=== PATIENT | male | born 1985 | race African-American/Black ===

== ENCOUNTER 2018-11-28 11:18 | Emergency (ER) | payer SELFPAY ==
[~2018-11-28] VITALS: Ht 157.5 cm; Wt 68.0 kg
[2018-11-28] MEDS ORDERED: PHEN30CA PO (11:29)
--- NOTE | 2018-11-28 12:01 | PHYS DOC ---
Past Medical History Past Medical History: Seizure Past Surgical History: No Surgical History Alcohol Use: Occasionally Drug Use: None Adult General Chief Complaint Chief Complaint: SEIZURE HPI HPI Patient is a 32-year-old male who presents after having had a seizure. Patient does indicate that he has a history of seizure disorder and takes Dilantin for seizures. He does indicate that his last dose was today. He states he just took 200 mg. He does admit to having missed recent doses of the medication because he moved here 3 months ago and still has not established care with a doctor. He does admit to mild headache but denies any injuries. Patient reportedly was postictal during EMS evaluation. Currently patient has returned to baseline. Review of Systems Review of Systems Constitutional: Denies fever or chills [] Respiratory: Denies cough or shortness of breath [] Cardiovascular: No additional information not addressed in HPI [] GI: Denies abdominal pain, nausea, vomiting or diarrhea [] Musculoskeletal: Denies back pain or joint pain [] Neurologic: Complains of headache and seizure without focal weakness or sensory changes [] All other systems were reviewed and found to be within normal limits, except as documented in this note. Current Medications Current Medications Current Medications Medications (Trade) Dose Ordered Sig/Ursula Start Time Stop Time Status Last Admin Dose Admin Fosphenytoin Sodium 1000 mg/ Sodium Chloride 70 ml @ 280 mls/hr 1X ONCE 11/28/18 14:15 11/28/18 14:29 DC 11/28/18 15:10 280 MLS/HR Lorazepam (Ativan) 1 mg 1X ONCE 11/28/18 12:00 11/28/18 12:02 DC 11/28/18 12:21 1 MG Allergies Allergies Allergies Coded Allergies Type Severity Reaction Last Updated Verified No Known Drug Allergies 11/28/18 No Physical Exam Physical Exam Constitutional: Well developed, well nourished, no acute distress, non-toxic appearance. [] HENT: Normocephalic, atraumatic, bilateral external ears normal, oropharynx moist, no oral exudates, nose normal. [] Eyes: PERRLA, EOMI, conjunctiva normal, no discharge. [] Neck: Normal range of motion, no tenderness, supple, no stridor. [] Cardiovascular: Regular rate and rhythm, no murmur [] Lungs & Thorax: Bilateral breath sounds clear to auscultation [] Abdomen: Bowel sounds normal, soft, no tenderness. [] Skin: Warm, dry, no erythema, no rash. [] Extremities: No tenderness, no cyanosis, no clubbing, ROM intact, no edema. [] Neurologic: Alert and oriented X 3, normal motor function, normal sensory function, no focal deficits noted. [] Current Patient Data Vital Signs Vital Signs Date Time Temp Pulse Resp B/P (MAP) Pulse Ox O2 Delivery O2 Flow Rate FiO2 11/28/18 13:34 62 16 97 11/28/18 11:18 98.4 137/66 (89) Room Air 98.4 Lab Values Laboratory Tests Test 11/28/18 11:39 11/28/18 14:00 White Blood Count 5.2 x10^3/uL (4.0-11.0) Red Blood Count 4.52 x10^6/uL (4.30-5.70) Hemoglobin 14.3 g/dL (13.0-17.5) Hematocrit 41.6 % (39.0-53.0) Mean Corpuscular Volume 92 fL (79-100) Mean Corpuscular Hemoglobin 32 pg (25-35) Mean Corpuscular Hemoglobin Concent 34 g/dL (31-37) Red Cell Distribution Width 14.1 % (11.5-14.5) Platelet Count 196 x10^3/uL (140-400) Neutrophils (%) (Auto) 48 % (31-73) Lymphocytes (%) (Auto) 40 % (24-48) Monocytes (%) (Auto) 10 % (0-9) H Eosinophils (%) (Auto) 2 % (0-3) Basophils (%) (Auto) 0 % (0-3) Neutrophils # (Auto) 2.5 x10^3uL (1.8-7.7) Lymphocytes # (Auto) 2.1 x10^3/uL (1.0-4.8) Monocytes # (Auto) 0.5 x10^3/uL (0.0-1.1) Eosinophils # (Auto) 0.1 x10^3/uL (0.0-0.7) Basophils # (Auto) 0.0 x10^3/uL (0.0-0.2) Sodium Level 140 mmol/L (136-145) Potassium Level 3.8 mmol/L (3.5-5.1) Chloride Level 101 mmol/L (98-107) Carbon Dioxide Level 25 mmol/L (21-32) Anion Gap 14 (6-14) Blood Urea Nitrogen 9 mg/dL (8-26) Creatinine 1.4 mg/dL (0.7-1.3) H Estimated GFR (Cockcroft-Gault) 70.6 BUN/Creatinine Ratio 6 (6-20) Glucose Level 160 mg/dL (70-99) H Calcium Level 9.1 mg/dL (8.5-10.1) Total Bilirubin 0.4 mg/dL (0.2-1.0) Aspartate Amino Transferase (AST) 33 U/L (15-37) Alanine Aminotransferase (ALT) 47 U/L (16-63) Alkaline Phosphatase 82 U/L (46-116) Total Protein 7.8 g/dL (6.4-8.2) Albumin 3.5 g/dL (3.4-5.0) Albumin/Globulin Ratio 0.8 (1.0-1.7) L Phenytoin (Dilantin) Level < 0.5 mcg/mL (10.0-20.0) L Phenytoin Last Dose Date Unknown Phenytoin Last Dose Time Unknown Urine Collection Type Unknown Urine Color Yellow Urine Clarity Clear Urine pH 6.5 Urine Specific [place] 1.015 Urine Protein Negative mg/dL (NEG-TRACE) Urine Glucose (UA) Negative mg/dL (NEG) Urine Ketones (Stick) Negative mg/dL (NEG) Urine Blood Negative (NEG) Urine Nitrite Negative (NEG) Urine Bilirubin Negative (NEG) Urine Urobilinogen Dipstick 0.2 mg/dL (0.2 mg/dL) Urine Leukocyte Esterase Negative (NEG) Urine RBC 0 /HPF (0-2) Urine WBC 0 /HPF (0-4) Urine Bacteria 0 /HPF (0-FEW) Urine Opiates Screen Neg (NEG) Urine Methadone Screen Neg (NEG) Urine Barbiturates Neg (NEG) Urine Phencyclidine Screen Neg (NEG) Urine Amphetamine/Methamphetamine Neg (NEG) Urine Benzodiazepines Screen Neg (NEG) Urine Cocaine Screen Neg (NEG) Urine Cannabinoids Screen Neg (NEG) Urine Ethyl Alcohol Neg (NEG) Laboratory Tests 11/28/18 11:39 Laboratory Tests 11/28/18 11:39 EKG EKG [] Radiology/Procedures Radiology/Procedures [] Course & Med Decision Making Course & Med Decision Making Pertinent Labs and Imaging studies reviewed. (See chart for details) [] Dragon Disclaimer Dragon Disclaimer This electronic medical record was generated, in whole or in part, using a voice recognition dictation system. Departure Departure Impression: Primary Impression: Seizure Disposition: HOME, SELF-CARE Condition: STABLE Referrals: NO PCP (PCP) Patient Instructions: Seizure Disorder, Child, Generalized Tonic-Clonic Scripts Phenytoin Sodium Extended (DILANTIN) 100 Mg Capsule 1 CAP PO TID, #90 CAP Prov: ABY ARNOLD Jr. DO 11/28/18 ABY ARNOLD Jr. DO Nov 28, 2018 12:01
[2018-11-28 12:15] LABS: ANION GAP 14 (6-14); BLOOD UREA NITROGEN 9 mg/dL (8-26); BUN/CREATININE RATIO 6 (6-20); CALCIUM 9.1 mg/dL (8.5-10.1); CARBON DIOXIDE 25 mmol/L (21-32); CHLORIDE 101 mmol/L (98-107); CREATININE 1.4 mg/dL (0.7-1.3); GFR 70.6; GLUCOSE 160 mg/dL (70-99); POTASSIUM 3.8 mmol/L (3.5-5.1); SODIUM 140 mmol/L (136-145)
[2018-11-28 12:21] LABS: ALBUMIN 3.5 g/dL (3.4-5.0); ALBUMIN/GLOBULIN RATIO 0.8 (1.0-1.7); ALK PHOS 82 U/L (46-116); ALT (SGPT) 47 U/L (16-63); AST (SGOT) 33 U/L (15-37); TOTAL BILIRUBIN 0.4 mg/dL (0.2-1.0); TOTAL PROTEIN 7.8 g/dL (6.4-8.2)
[2018-11-28 12:24] LABS: BASO % 0 % (0-3); EOS # 0.1 x10^3/uL (0.0-0.7); EOS % 2 % (0-3); HEMATOCRIT 41.6 % (39.0-53.0); HEMOGLOBIN 14.3 g/dL (13.0-17.5); LYMPH # 2.1 x10^3/uL (1.0-4.8); LYMPH % 40 % (24-48); MEAN CORPUSCULAR HEMOGLOBIN 32 pg (25-35); MEAN CORPUSCULAR HGB CONC 34 g/dL (31-37); MEAN CORPUSCULAR VOLUME 92 fL (79-100); MONO # 0.5 x10^3/uL (0.0-1.1); MONO % 10 % (0-9); NEUT # 2.5 x10^3uL (1.8-7.7); NEUT % 48 % (31-73); PLATELET COUNT 196 x10^3/uL (140-400); RED BLOOD COUNT 4.52 x10^6/uL (4.30-5.70); RED CELL DISTRIBUTION WIDTH 14.1 % (11.5-14.5); WHITE BLOOD COUNT 5.2 x10^3/uL (4.0-11.0)
[2018-11-28 12:28] LABS: PHENY < 0.5 mcg/mL (10.0-20.0)
[2018-11-28] MEDS ORDERED: FOSPHENYTOIN 1,000 MG in IV NORMAL SALINE 50ML 50 ML IV ONE (14:15)
[2018-11-28 14:29] LABS: BARBITURATES NEG (NEG); BENZODIAZEPINES NEG (NEG); BILIRUBIN,URINE NEGATIVE (NEG); CANNABINOIDS NEG (NEG); CLARITY,URINE CLEAR; COCAINE NEG (NEG); COLOR,URINE YELLOW; METHADONE NEG (NEG); NITRITE,URINE NEGATIVE (NEG); OPIATES NEG (NEG); PH,URINE 6.5; PHENCYCLIDINE NEG (NEG); PROTEIN,URINE NEGATIVE (NEG-TRACE); UROBILINOGEN,URINE 0.2 mg/dL (0.2 mg/dL)
[2018-11-28 14:41] LABS: AMPHETAMINE/METHAMPHETAMINE NEG (NEG)
[2018-11-28 15:02] LABS: BACTERIA,URINE 0 /HPF (0-FEW); RBC,URINE 0 /HPF (0-2); WBC,URINE 0 /HPF (0-4)
[2018-11-28 16:04] VITALS: BP 123/64
[2018-11-28] MEDS ORDERED: PHEN100C PO (16:19)
[2018-11-28] MEDS ORDERED: AZITHROMYCIN 250 MG TABLET. PO ONE (16:45)
[2018-11-28] MEDS ORDERED: cefTRIAXone IM 250 MG VIAL IM ONE (16:45)
== END 2018-11-28 17:12 | disposition home or self-care (01) ==
LOC: ER 11:18
DX: G40.909 Epilepsy, unspecified, not intractable, without status epilepticus (principal)
CPT/HCPCS: 36415; 80053; 80185; 80307; 81001; 85025; 87491; 87591; 96365; 96372; 96375; 99283; J0696; J2060; Q0144; Q2009

== ENCOUNTER 2019-03-05 15:05 | Emergency (ER) | payer SELFPAY ==
[~2019-03-05] VITALS: Ht 165.1 cm; Wt 72.6 kg
[~2019-03-05 15:05] MED LIST: PHEN100C PO; PHEN30CA PO
[2019-03-05] MEDS ORDERED: IV NORMAL SALINE 1000ML BAG 1,000 ML IV ONE (15:30)
[2019-03-05] MEDS ORDERED: ONDANSETRON PF 4 MG/2 ML VIAL. IV ONE (15:30)
[2019-03-05 15:35] LABS: BASO % 0 % (0-3); EOS # 0.1 x10^3/uL (0.0-0.7); EOS % 1 % (0-3); HEMATOCRIT 46.5 % (39.0-53.0); HEMOGLOBIN 15.4 g/dL (13.0-17.5); LYMPH # 2.6 x10^3/uL (1.0-4.8); LYMPH % 37 % (24-48); MEAN CORPUSCULAR HEMOGLOBIN 31 pg (25-35); MEAN CORPUSCULAR HGB CONC 33 g/dL (31-37); MEAN CORPUSCULAR VOLUME 92 fL (79-100); MONO # 0.6 x10^3/uL (0.0-1.1); MONO % 9 % (0-9); NEUT # 3.7 x10^3uL (1.8-7.7); NEUT % 53 % (31-73); PLATELET COUNT 226 x10^3/uL (140-400); RED BLOOD COUNT 5.07 x10^6/uL (4.30-5.70); RED CELL DISTRIBUTION WIDTH 13.9 % (11.5-14.5); WHITE BLOOD COUNT 6.9 x10^3/uL (4.0-11.0)
--- NOTE | 2019-03-05 15:35 | PHYS DOC ---
Past Medical History Past Medical History: Seizure (MONISHA TABARES) Past Surgical History: No Surgical History (MONISHA TABARES) Alcohol Use: Occasionally Drug Use: None (MONISHA TABARES) Adult General Chief Complaint Chief Complaint: SEIZURE HPI HPI Patient is a 33 year old male with a history of seizures presents to the ED complaining of seizure just prior to arrival. Patient states that he had been drinking alcohol a few days ago. States he has missed doses of his Dilantin. States he has not taken it today. He usually takes 300 mg. Patient felt like he saw [employer] lights, sat down on side of bed and told family to call an ambulance because he could feel the seizure coming on. States same symptoms as previous seizures. Bystanders report it lasting less than 1 minute. Patient has not established with a PCP. Patient was postictal when EMS was on scene. Patient has currently return to his baseline and complains of no symptoms at this time. (MONISHA TABARES) Review of Systems Review of Systems Constitutional: Denies fever or chills [] Eyes: Denies change in visual acuity, redness, or eye pain [] HENT: Denies nasal congestion or sore throat [] Respiratory: Denies cough or shortness of breath [] Cardiovascular: No additional information not addressed in HPI [] GI: Denies abdominal pain, nausea, vomiting, bloody stools or diarrhea [] : Denies dysuria or hematuria [] Musculoskeletal: Denies back pain or joint pain [] Integument: Denies rash or skin lesions [] Neurologic: Complains of seizure. Denies headache, focal weakness or sensory changes [] All other systems were reviewed and found to be within normal limits, except as documented in this note. (MONISHA TABARES) Current Medications Current Medications Current Medications Medications (Trade) Dose Ordered Sig/Ursula Start Time Stop Time Status Last Admin Dose Admin Fosphenytoin Sodium 450 mg/ Sodium Chloride 59 ml @ 240 mls/hr 1X ONCE 03/05/19 18:15 03/05/19 18:29 DC 03/05/19 18:34 240 MLS/HR Lorazepam (Ativan) 1 mg 1X ONCE 03/05/19 15:30 03/05/19 15:31 DC 03/05/19 15:30 1 MG Ondansetron HCl (Zofran) 4 mg 1X ONCE 03/05/19 15:30 03/05/19 15:31 DC 03/05/19 15:30 4 MG Sodium Chloride 1,000 ml @ 1,000 mls/hr 1X ONCE 03/05/19 15:30 03/05/19 16:29 DC 03/05/19 15:30 1,000 MLS/HR (MANOLO VASQUEZ MD) Allergies Allergies Allergies Coded Allergies Type Severity Reaction Last Updated Verified No Known Drug Allergies 11/28/18 No (MANOLO VASQUEZ MD) Physical Exam Physical Exam Constitutional: Well developed, well nourished, no acute distress, non-toxic appearance. [] HENT: Normocephalic, atraumatic, bilateral external ears normal, oropharynx moist, no oral exudates, nose normal. [] Eyes: PERRLA, EOMI, conjunctiva normal, no discharge. [] Neck: Normal range of motion, no tenderness, supple, no stridor. [] Cardiovascular:Heart rate regular rhythm, no murmur [] Lungs & Thorax: Bilateral breath sounds clear to auscultation [] Abdomen: Bowel sounds normal, soft, no tenderness, no masses, no pulsatile masses. [] Skin: Warm, dry, no erythema, no rash. [] Back: No tenderness, no CVA tenderness. [] Extremities: No tenderness, no cyanosis, no clubbing, ROM intact, no edema. [] Neurologic: Alert and oriented X 3, normal motor function, normal sensory function, no focal deficits noted. DTRs intact.[] Psychologic: Affect normal, judgement normal, mood normal. [] (MONISHA TABARES) Current Patient Data Vital Signs Vital Signs Date Time Temp Pulse Resp B/P (MAP) Pulse Ox O2 Delivery O2 Flow Rate FiO2 03/05/19 18:30 82 03/05/19 17:00 15 97 03/05/19 15:10 98.6 138/59 (85) Room Air 98.6 (MANOLO VASQUEZ MD) Lab Values Laboratory Tests Test 03/05/19 15:20 White Blood Count 6.9 x10^3/uL (4.0-11.0) Red Blood Count 5.07 x10^6/uL (4.30-5.70) Hemoglobin 15.4 g/dL (13.0-17.5) Hematocrit 46.5 % (39.0-53.0) Mean Corpuscular Volume 92 fL (79-100) Mean Corpuscular Hemoglobin 31 pg (25-35) Mean Corpuscular Hemoglobin Concent 33 g/dL (31-37) Red Cell Distribution Width 13.9 % (11.5-14.5) Platelet Count 226 x10^3/uL (140-400) Neutrophils (%) (Auto) 53 % (31-73) Lymphocytes (%) (Auto) 37 % (24-48) Monocytes (%) (Auto) 9 % (0-9) Eosinophils (%) (Auto) 1 % (0-3) Basophils (%) (Auto) 0 % (0-3) Neutrophils # (Auto) 3.7 x10^3uL (1.8-7.7) Lymphocytes # (Auto) 2.6 x10^3/uL (1.0-4.8) Monocytes # (Auto) 0.6 x10^3/uL (0.0-1.1) Eosinophils # (Auto) 0.1 x10^3/uL (0.0-0.7) Basophils # (Auto) 0.0 x10^3/uL (0.0-0.2) Sodium Level 136 mmol/L (136-145) Potassium Level 4.0 mmol/L (3.5-5.1) Chloride Level 98 mmol/L (98-107) Carbon Dioxide Level 21 mmol/L (21-32) Anion Gap 17 (6-14) H Blood Urea Nitrogen 17 mg/dL (8-26) Creatinine 1.2 mg/dL (0.7-1.3) Estimated GFR (Cockcroft-Gault) 83.9 Glucose Level 185 mg/dL (70-99) H Calcium Level 9.4 mg/dL (8.5-10.1) Albumin 4.2 g/dL (3.4-5.0) Phenytoin (Dilantin) Level 2.2 mcg/mL (10.0-20.0) L Phenytoin Last Dose Date Unk Phenytoin Last Dose Time Unk Laboratory Tests 03/05/19 15:20 Laboratory Tests 03/05/19 15:20 (MANOLO VASQUEZ MD) Lab Values Laboratory Tests Test 03/05/19 15:20 White Blood Count 6.9 x10^3/uL (4.0-11.0) Red Blood Count 5.07 x10^6/uL (4.30-5.70) Hemoglobin 15.4 g/dL (13.0-17.5) Hematocrit 46.5 % (39.0-53.0) Mean Corpuscular Volume 92 fL (79-100) Mean Corpuscular Hemoglobin 31 pg (25-35) Mean Corpuscular Hemoglobin Concent 33 g/dL (31-37) Red Cell Distribution Width 13.9 % (11.5-14.5) Platelet Count 226 x10^3/uL (140-400) Neutrophils (%) (Auto) 53 % (31-73) Lymphocytes (%) (Auto) 37 % (24-48) Monocytes (%) (Auto) 9 % (0-9) Eosinophils (%) (Auto) 1 % (0-3) Basophils (%) (Auto) 0 % (0-3) Neutrophils # (Auto) 3.7 x10^3uL (1.8-7.7) Lymphocytes # (Auto) 2.6 x10^3/uL (1.0-4.8) Monocytes # (Auto) 0.6 x10^3/uL (0.0-1.1) Eosinophils # (Auto) 0.1 x10^3/uL (0.0-0.7) Basophils # (Auto) 0.0 x10^3/uL (0.0-0.2) Sodium Level 136 mmol/L (136-145) Potassium Level 4.0 mmol/L (3.5-5.1) Chloride Level 98 mmol/L (98-107) Carbon Dioxide Level 21 mmol/L (21-32) Anion Gap 17 (6-14) H Blood Urea Nitrogen 17 mg/dL (8-26) Creatinine 1.2 mg/dL (0.7-1.3) Estimated GFR (Cockcroft-Gault) 83.9 Glucose Level 185 mg/dL (70-99) H Calcium Level 9.4 mg/dL (8.5-10.1) Albumin 4.2 g/dL (3.4-5.0) Phenytoin (Dilantin) Level 2.2 mcg/mL (10.0-20.0) L Phenytoin Last Dose Date Unk Phenytoin Last Dose Time Unk Laboratory Tests 03/05/19 15:20 Laboratory Tests 03/05/19 15:20 (MONISHA TABARES) EKG EKG [] (MONISHA TABARES) Radiology/Procedures Radiology/Procedures [] (MONISHA TABARES) Course & Med Decision Making Course & Med Decision Making Pertinent Labs and Imaging studies reviewed. (See chart for details) []Discussed lab findings with patient. Patient improved in the ED. States he is feeling much better. Phenytoin loading dose calculator used and Patient was given 450 mg of IV fosphenytoin in the ED. Patient states that he takes 300 mg once daily at home. We'll prescribe a short prescription of patient's Dilantin. Discussed the importance of taking his seizure medication. Patient given appropriate follow-up for PCP outpatient. Provided contact information/ education. States he is going to follow-up this week or next week. Discussed reasons to return to the ED. Patient understands and agrees with plan. Family at bedside. (MONISHA TABARES) Course & Med Decision Making I was not involved in the care of this patient after 1600 on 03/05/2019. Dr Vasquez (MANOLO VASQUEZ MD) Dragon Disclaimer Dragon Disclaimer This electronic medical record was generated, in whole or in part, using a voice recognition dictation system. (MONISHA TABARES) Departure Departure Impression: Primary Impression: Seizure Disposition: 01 HOME, SELF-CARE Condition: IMPROVED Referrals: NO PCP (PCP) GAGE PEREZ MD Patient Instructions: Seizure, Adult Scripts Phenytoin Sodium Extended (DILANTIN) 100 Mg Capsule 1 CAP PO TID for 7 Days, #21 CAP 0 Refills Prov: MONISHA TABARES 03/05/19 MONISHA TABARES Mar 05, 2019 15:35 MANOLO VASQUEZ MD Mar 09, 2019 06:47
[2019-03-05 15:43] LABS: ANION GAP 17 (6-14); BLOOD UREA NITROGEN 17 mg/dL (8-26); CALCIUM 9.4 mg/dL (8.5-10.1); CARBON DIOXIDE 21 mmol/L (21-32); CHLORIDE 98 mmol/L (98-107); CREATININE 1.2 mg/dL (0.7-1.3); GFR 83.9; GLUCOSE 185 mg/dL (70-99); SODIUM 136 mmol/L (136-145)
[2019-03-05 15:45] LABS: PHENY 2.2 mcg/mL (10.0-20.0)
--- NOTE | 2019-03-05 15:47 | EKG ---
[facility] [address] [place] [address] Test Date: 2019-03-05 Test Time: 15:18:15 Pat Name: SURESH GONZALES Department: Room: Gender: M Hims Manager: : 1985 Requested By: MONISHA TABARES Order Number: [id number] Reading MD: Nicholas José Measurements Intervals [place] Rate: 89 P: 90 CT: 142 QRS: 62 QRSD: 82 T: 25 QT: 360 QTc: 444 Interpretive Statements SINUS RHYTHM Electronically Signed On 03-11-2019 13:07:21 CDT by Nicholas José
[2019-03-05] MEDS ORDERED: NORMAL SALINE IV ONE (18:15)
[2019-03-05] MEDS ORDERED: FOSPHENYTOIN IV ONE (18:15)
[2019-03-05] MEDS ORDERED: PHEN100C PO (18:17)
[2019-03-05 18:30] VITALS: BP 103/58
== END 2019-03-05 19:10 | disposition home or self-care (01) ==
LOC: ER 15:05
DX: R56.9 Unspecified convulsions (principal)
CPT/HCPCS: 36415; 80048; 80185; 82040; 85025; 93005; 96365; 96375; 99285; J2060; J2405; J7030; Q2009; 96361

== ENCOUNTER 2019-05-23 04:18 | Emergency (ER) | payer SELFPAY ==
[~2019-05-23] VITALS: Ht 157.5 cm; Wt 81.6 kg
[2019-05-23 05:14] LABS: BASO % 0 % (0-3); EOS # 0.1 x10^3/uL (0.0-0.7); EOS % 2 % (0-3); HEMATOCRIT 42.2 % (39.0-53.0); HEMOGLOBIN 14.3 g/dL (13.0-17.5); LYMPH # 1.4 x10^3/uL (1.0-4.8); LYMPH % 23 % (24-48); MEAN CORPUSCULAR HEMOGLOBIN 31 pg (25-35); MEAN CORPUSCULAR HGB CONC 34 g/dL (31-37); MEAN CORPUSCULAR VOLUME 92 fL (79-100); MONO # 0.3 x10^3/uL (0.0-1.1); MONO % 5 % (0-9); NEUT # 4.2 x10^3uL (1.8-7.7); NEUT % 70 % (31-73); PLATELET COUNT 168 x10^3/uL (140-400); RED BLOOD COUNT 4.59 x10^6/uL (4.30-5.70); RED CELL DISTRIBUTION WIDTH 14.2 % (11.5-14.5); WHITE BLOOD COUNT 6.1 x10^3/uL (4.0-11.0)
--- NOTE | 2019-05-23 05:23 | PHYS DOC ---
Past Medical History Past Medical History: Seizure Past Surgical History: No Surgical History Alcohol Use: Heavy Drug Use: None Adult General Chief Complaint Chief Complaint: SEIZURE HPI HPI Patient is a 33 year old AA male with history of epilepsy and alcoholism who presents with a witnessed seizure episode. Seizure occurred 30 minutes prior to ED arrival and lasted 3-4 minutes followed by a brief postictal period which resolved prior to ED arrival. Patient reports persistent headache and nausea typical of post-ictal period. Patient has history of medication noncompliance and has been drinking alcohol the past several days with last reported drink of alcohol 24 hours ago. Patient last seizure episode was 3 months ago. He was treated at the emergency department at that time. Patient is not a PCP and neur ologist has not follow-up with a primary care physician. No other acute symptoms or complaints. History obtained from significant other and patient[] Review of Systems Review of Systems ROS as per HPI All other systems were reviewed and found to be within normal limits, except as documented in this note. Current Medications Current Medications Current Medications Medications (Trade) Dose Ordered Sig/Ursula Start Time Stop Time Status Last Admin Dose Admin Fosphenytoin Sodium 1000 mg/ Sodium Chloride 70 ml @ 280 mls/hr 1X ONCE 05/23/19 06:30 05/23/19 06:44 Ketorolac Tromethamine (Toradol 15mg Vial) 15 mg 1X ONCE 05/23/19 05:30 05/23/19 05:41 DC 05/23/19 05:34 15 MG Ondansetron HCl (Zofran) 4 mg 1X ONCE 05/23/19 05:30 05/23/19 05:41 DC 05/23/19 05:33 4 MG Allergies Allergies Allergies Coded Allergies Type Severity Reaction Last Updated Verified No Known Drug Allergies 11/28/18 No Physical Exam Physical Exam Constitutional: Well developed, well nourished, no acute distress, non-toxic appearance. [] HENT: Normocephalic, atraumatic, bilateral external ears normal, oropharynx moist, no oral exudates, nose normal. [] Eyes: PERRLA, EOMI, conjunctiva normal, no discharge. [] Neck: Normal range of motion, no tenderness. [] Cardiovascular:Heart rate regular rhythm, no murmur [] Lungs & Thorax: Bilateral breath sounds clear to auscultation [] Abdomen: Bowel sounds normal, soft, no tenderness. [] Skin: Warm, dry. [] Back: No tenderness. [] Extremities: No tenderness. [] Neurologic: Alert and oriented X 3, CN 2-12 gorssly intact, normal motor function, normal sensory function, no focal deficits noted. [] Psychologic: Affect normal, judgement normal, mood normal. [] Current Patient Data Vital Signs Vital Signs Date Time Temp Pulse Resp B/P (MAP) Pulse Ox O2 Delivery O2 Flow Rate FiO2 05/23/19 06:00 54 16 97 05/23/19 04:20 98.6 128/77 (94) Room Air 98.6 Lab Values Laboratory Tests Test 05/23/19 04:40 White Blood Count 6.1 x10^3/uL (4.0-11.0) Red Blood Count 4.59 x10^6/uL (4.30-5.70) Hemoglobin 14.3 g/dL (13.0-17.5) Hematocrit 42.2 % (39.0-53.0) Mean Corpuscular Volume 92 fL (79-100) Mean Corpuscular Hemoglobin 31 pg (25-35) Mean Corpuscular Hemoglobin Concent 34 g/dL (31-37) Red Cell Distribution Width 14.2 % (11.5-14.5) Platelet Count 168 x10^3/uL (140-400) Neutrophils (%) (Auto) 70 % (31-73) Lymphocytes (%) (Auto) 23 % (24-48) L Monocytes (%) (Auto) 5 % (0-9) Eosinophils (%) (Auto) 2 % (0-3) Basophils (%) (Auto) 0 % (0-3) Neutrophils # (Auto) 4.2 x10^3uL (1.8-7.7) Lymphocytes # (Auto) 1.4 x10^3/uL (1.0-4.8) Monocytes # (Auto) 0.3 x10^3/uL (0.0-1.1) Eosinophils # (Auto) 0.1 x10^3/uL (0.0-0.7) Basophils # (Auto) 0.0 x10^3/uL (0.0-0.2) Sodium Level 139 mmol/L (136-145) Potassium Level 3.5 mmol/L (3.5-5.1) Chloride Level 101 mmol/L (98-107) Carbon Dioxide Level 27 mmol/L (21-32) Anion Gap 11 (6-14) Blood Urea Nitrogen 14 mg/dL (8-26) Creatinine 1.4 mg/dL (0.7-1.3) H Estimated GFR (Cockcroft-Gault) 70.2 BUN/Creatinine Ratio 10 (6-20) Glucose Level 183 mg/dL (70-99) H Calcium Level 9.2 mg/dL (8.5-10.1) Total Bilirubin 0.3 mg/dL (0.2-1.0) Aspartate Amino Transferase (AST) 66 U/L (15-37) H Alanine Aminotransferase (ALT) 121 U/L (16-63) H Alkaline Phosphatase 69 U/L (46-116) Total Protein 8.1 g/dL (6.4-8.2) Albumin 3.8 g/dL (3.4-5.0) Albumin/Globulin Ratio 0.9 (1.0-1.7) L Phenytoin (Dilantin) Level < 0.4 mcg/mL (10.0-20.0) L Phenytoin Last Dose Date Unknown Phenytoin Last Dose Time Unknown Ethyl Alcohol Level < 10 mg/dL (0-10) Laboratory Tests 05/23/19 04:40 Laboratory Tests 05/23/19 04:40 EKG EKG [] Radiology/Procedures Radiology/Procedures [] Course & Med Decision Making Course & Med Decision Making Pertinent Labs and Imaging studies reviewed. (See chart for details) [Alcohol abuse in the setting of medical noncompliance own seizure disorder. No chest pain palpitations hallucinations to suggest DTs. Cerebyx given. Care endorsed to oncoming ERP with position pending. Anticipate discharge home.] Dragon Disclaimer Dragon Disclaimer This electronic medical record was generated, in whole or in part, using a voice recognition dictation system. Departure Departure Impression: Primary Impression: Seizure Additional Impressions: Noncompliance with medications Alcohol abuse Condition: STABLE Referrals: NO PCP (PCP) Problem Qualifiers JENNIFER PATE DO May 23, 2019 05:23
[2019-05-23] MEDS ORDERED: KETOROLAC 15 MG/ML VIAL. IV ONE (05:30)
[2019-05-23] MEDS ORDERED: ONDANSETRON PF 4 MG/2 ML VIAL. IV ONE (05:30)
[2019-05-23 05:32] LABS: ANION GAP 11 (6-14); BLOOD UREA NITROGEN 14 mg/dL (8-26); BUN/CREATININE RATIO 10 (6-20); CALCIUM 9.2 mg/dL (8.5-10.1); CARBON DIOXIDE 27 mmol/L (21-32); CHLORIDE 101 mmol/L (98-107); CREATININE 1.4 mg/dL (0.7-1.3); GFR 70.2; GLUCOSE 183 mg/dL (70-99); POTASSIUM 3.5 mmol/L (3.5-5.1); SODIUM 139 mmol/L (136-145)
[2019-05-23 05:38] LABS: ALBUMIN 3.8 g/dL (3.4-5.0); ALBUMIN/GLOBULIN RATIO 0.9 (1.0-1.7); ALK PHOS 69 U/L (46-116); ALT (SGPT) 121 U/L (16-63); AST (SGOT) 66 U/L (15-37); TOTAL BILIRUBIN 0.3 mg/dL (0.2-1.0); TOTAL PROTEIN 8.1 g/dL (6.4-8.2)
[2019-05-23 05:40] LABS: PHENY < 0.4 mcg/mL (10.0-20.0)
[2019-05-23 06:16] LABS: BARBITURATES NEG (NEG); BENZODIAZEPINES NEG (NEG); CANNABINOIDS NEG (NEG); COCAINE NEG (NEG); METHADONE NEG (NEG); OPIATES NEG (NEG); PHENCYCLIDINE NEG (NEG)
[2019-05-23 06:19] LABS: AMPHETAMINE/METHAMPHETAMINE NEG (NEG)
[2019-05-23] MEDS ORDERED: FOSPHENYTOIN 1,000 MG in IV NORMAL SALINE 50ML 50 ML IV ONE (06:30)
[2019-05-23 07:46] VITALS: BP 121/63
[2019-05-23] MEDS ORDERED: PHEN100C PO (08:19)
--- NOTE | 2019-05-24 07:54 | EKG ---
[facility] [address] [place] [address] Test Date: 2019-05-23 Test Time: 04:32:36 Pat Name: SURESH GONZALES Department: Room: Gender: M Nnps: : 1985 Requested By: RONNI SARAVIA Order Number: [id number] Reading MD: Measurements Intervals [place] Rate: 77 P: 54 NC: 166 QRS: 28 QRSD: 88 T: 21 QT: 374 QTc: 429 Interpretive Statements SINUS RHYTHM NORMAL ECG No previous ECG available for comparison
== END 2019-05-23 08:27 | disposition home or self-care (01) ==
LOC: ER 04:18
DX: R56.9 Unspecified convulsions (principal); R11.0 Nausea; Z91.14 Patient's other noncompliance with medication regimen; F10.20 Alcohol dependence, uncomplicated; Y90.0 Blood alcohol level of less than 20 mg/100 ml
CPT/HCPCS: 36415; 80053; 80185; 80307; 83735; 85025; 93005; 96374; 96375; 99285; G0480; J1885; J2060; J2405; Q2009

== ENCOUNTER 2019-10-24 03:17 | Emergency (ER) | payer OTHER ==
[~2019-10-24] VITALS: Ht 177.8 cm; Wt 72.6 kg
[2019-10-24] MEDS ORDERED: IV NORMAL SALINE 1000ML BAG 1,000 ML IV ONE (03:30)
--- NOTE | 2019-10-24 03:32 | PHYS DOC ---
Past Medical History Past Medical History: Seizure Past Surgical History: No Surgical History Alcohol Use: Heavy Drug Use: None Adult General Chief Complaint Chief Complaint: SEIZURE HPI HPI 33-year-old male with underlying history of seizure disorder presents to the emergency department after seizure activity. Witnessed by girlfriend states her last approximate 1 minute. Patient was nauseous afterwards. He is back to baseline at this time. Denies any headache or visual changes, chest pain, shortness breath, abdominal pain. Patient states he does take Dilantin 100 mg by mouth 3 times daily. Patient states he's been running low on medication has been extending his medications as able. Nothing makes his symptoms worse, nothing makes his symptoms better. Review of Systems Review of Systems Constitutional: Denies fever or chills [] Respiratory: Denies cough or shortness of breath [] Cardiovascular: No additional information not addressed in HPI [] GI: Denies abdominal pain, + nausea, vomiting, bloody stools or diarrhea [] Musculoskeletal: Denies back pain or joint pain [] Neurologic: Denies headache, focal weakness or sensory changes [] All other systems were reviewed and found to be within normal limits, except as documented in this note. Current Medications Current Medications Current Medications Medications (Trade) Dose Ordered Sig/Ursula Start Time Stop Time Status Last Admin Dose Admin Fosphenytoin Sodium 1000 mg/ Sodium Chloride 70 ml @ 280 mls/hr 1X ONCE 10/24/19 04:15 10/24/19 04:29 UNV Ondansetron HCl (Zofran) 4 mg 1X ONCE 10/24/19 03:45 10/24/19 03:46 DC 10/24/19 03:52 4 MG Sodium Chloride 1,000 ml @ 1,000 mls/hr 1X ONCE 10/24/19 03:30 10/24/19 04:29 10/24/19 03:50 1,000 MLS/HR Allergies Allergies Allergies Coded Allergies Type Severity Reaction Last Updated Verified No Known Drug Allergies 11/28/18 No Physical Exam Physical Exam Constitutional: Well developed, well nourished, no acute distress, non-toxic appearance. [] HENT: Normocephalic, atraumatic, bilateral external ears normal, oropharynx moist, no oral exudates, nose normal. [] Eyes: PERRLA, EOMI, conjunctiva normal, no discharge. [] Cardiovascular:Heart rate regular rhythm, no murmur [] Lungs & Thorax: Bilateral breath sounds clear to auscultation [] Abdomen: Bowel sounds normal, soft, no tenderness, no masses, no pulsatile masses. [] Skin: Warm, dry, no erythema, no rash. [] Extremities: No tenderness, no edema. [] Neurologic: Alert and oriented X 3, no focal deficits noted. [] Psychologic: Affect normal, judgement normal, mood normal. [] Current Patient Data Vital Signs Vital Signs Date Time Temp Pulse Resp B/P (MAP) Pulse Ox O2 Delivery O2 Flow Rate FiO2 10/24/19 03:17 98.6 99 14 129/74 (92) 94 Room Air 98.6 Lab Values Laboratory Tests Test 10/24/19 03:35 White Blood Count 7.1 x10^3/uL (4.0-11.0) Red Blood Count 4.73 x10^6/uL (4.30-5.70) Hemoglobin 14.2 g/dL (13.0-17.5) Hematocrit 42.2 % (39.0-53.0) Mean Corpuscular Volume 89 fL (79-100) Mean Corpuscular Hemoglobin 30 pg (25-35) Mean Corpuscular Hemoglobin Concent 34 g/dL (31-37) Red Cell Distribution Width 13.7 % (11.5-14.5) Platelet Count 185 x10^3/uL (140-400) Neutrophils (%) (Auto) 47 % (31-73) Lymphocytes (%) (Auto) 43 % (24-48) Monocytes (%) (Auto) 8 % (0-9) Eosinophils (%) (Auto) 2 % (0-3) Basophils (%) (Auto) 1 % (0-3) Neutrophils # (Auto) 3.3 x10^3/uL (1.8-7.7) Lymphocytes # (Auto) 3.0 x10^3/uL (1.0-4.8) Monocytes # (Auto) 0.6 x10^3/uL (0.0-1.1) Eosinophils # (Auto) 0.1 x10^3/uL (0.0-0.7) Basophils # (Auto) 0.0 x10^3/uL (0.0-0.2) Sodium Level 137 mmol/L (136-145) Potassium Level 3.9 mmol/L (3.5-5.1) Chloride Level 99 mmol/L (98-107) Carbon Dioxide Level 21 mmol/L (21-32) Anion Gap 17 (6-14) H Blood Urea Nitrogen 13 mg/dL (8-26) Creatinine 1.4 mg/dL (0.7-1.3) H Estimated GFR (Cockcroft-Gault) 70.2 BUN/Creatinine Ratio 9 (6-20) Glucose Level 121 mg/dL (70-99) H Calcium Level 8.8 mg/dL (8.5-10.1) Total Bilirubin 0.1 mg/dL (0.2-1.0) L Aspartate Amino Transferase (AST) 27 U/L (15-37) Alanine Aminotransferase (ALT) 28 U/L (16-63) Alkaline Phosphatase 73 U/L (46-116) Total Protein 8.6 g/dL (6.4-8.2) H Albumin 4.0 g/dL (3.4-5.0) Albumin/Globulin Ratio 0.9 (1.0-1.7) L Phenytoin (Dilantin) Level < 0.5 mcg/mL (10.0-20.0) L Phenytoin Last Dose Date Unk Phenytoin Last Dose Time Unk Laboratory Tests 10/24/19 03:35 Laboratory Tests 10/24/19 03:35 EKG EKG [] Radiology/Procedures Radiology/Procedures [] Course & Med Decision Making Course & Med Decision Making Pertinent Labs and Imaging studies reviewed. (See chart for details) []33-year-old male with underlying history of seizure disorder presents to the emergency department after seizure activity. Witnessed by girlfriend states her last approximate 1 minute. Patient was nauseous afterwards. He is back to baseline at this time. Denies any headache or visual changes, chest pain, shortness breath, abdominal pain. Patient states he does take Dilantin 100 mg by mouth 3 times daily. Patient states he's been running low on medication has been extending his medications as able. Nothing makes his symptoms worse, nothing makes his symptoms better. Labs reviewed Dilantin level < 0.5 cerebyx 1gm IV x 1 Rx provided for dilantin 100mg po TID Recommend dc home with follow up with PCP/Neurology as scheduled Discussed return precautions with patient at bedside Dragon Disclaimer Jolene Disclaimer This electronic medical record was generated, in whole or in part, using a voice recognition dictation system. Departure Departure Impression: Primary Impression: Seizure Disposition: 01 HOME, SELF-CARE Condition: IMPROVED Referrals: NO PCP (PCP) Patient Instructions: Seizure Disorder, Child, Generalized Tonic-Clonic Additional Instructions: Recommend follow up with PCP 3 - 5 days Return to the ER with worsening symptoms, intractable pain, fever, altered mental status Tylenol/Motrin as needed for pain Rx provided for dilantin 100mg 1 po TID Scripts Phenytoin Sodium Extended (DILANTIN) 100 Mg Capsule 1 CAP PO TID, #90 CAP 3 Refills Prov: SHASHA SIMPSON MD 10/24/19 SHASHA SIMPSON MD Oct 24, 2019 03:32
[2019-10-24 03:39] LABS: BASO % 1 % (0-3); EOS # 0.1 x10^3/uL (0.0-0.7); EOS % 2 % (0-3); HEMATOCRIT 42.2 % (39.0-53.0); HEMOGLOBIN 14.2 g/dL (13.0-17.5); LYMPH % 43 % (24-48); MEAN CORPUSCULAR HEMOGLOBIN 30 pg (25-35); MEAN CORPUSCULAR HGB CONC 34 g/dL (31-37); MEAN CORPUSCULAR VOLUME 89 fL (79-100); MONO # 0.6 x10^3/uL (0.0-1.1); MONO % 8 % (0-9); NEUT # 3.3 x10^3/uL (1.8-7.7); NEUT % 47 % (31-73); PLATELET COUNT 185 x10^3/uL (140-400); RED BLOOD COUNT 4.73 x10^6/uL (4.30-5.70); RED CELL DISTRIBUTION WIDTH 13.7 % (11.5-14.5); WHITE BLOOD COUNT 7.1 x10^3/uL (4.0-11.0)
[2019-10-24] MEDS ORDERED: ONDANSETRON PF 4 MG/2 ML VIAL. IV ONE (03:45)
[2019-10-24 03:48] LABS: CALCIUM 8.8 mg/dL (8.5-10.1); CREATININE 1.4 mg/dL (0.7-1.3); GFR 70.2; POTASSIUM 3.9 mmol/L (3.5-5.1)
[2019-10-24 03:50] LABS: PHENY < 0.5 mcg/mL (10.0-20.0)
[2019-10-24 04:04] LABS: ALBUMIN/GLOBULIN RATIO 0.9 (1.0-1.7); TOTAL BILIRUBIN 0.1 mg/dL (0.2-1.0); TOTAL PROTEIN 8.6 g/dL (6.4-8.2)
[2019-10-24] MEDS ORDERED: PHEN100C PO (04:08)
[2019-10-24 04:30] VITALS: BP 124/67
[2019-10-24] MEDS ORDERED: FOSPHENYTOIN 1,000 MG in IV NORMAL SALINE 50ML 50 ML IV ONE (04:30)
== END 2019-10-24 04:55 | disposition home or self-care (01) ==
LOC: ER 03:17
DX: G40.909 Epilepsy, unspecified, not intractable, without status epilepticus (principal); R11.2 Nausea with vomiting, unspecified; F10.20 Alcohol dependence, uncomplicated; Y90.9 Presence of alcohol in blood, level not specified
CPT/HCPCS: 36415; 80053; 80185; 83605; 85025; 96361; 96365; 96375; 99284; J2405; J7030; Q2009

== ENCOUNTER 2019-12-14 05:05 | Emergency (ER) | payer OTHER ==
[~2019-12-14] VITALS: Ht 157.5 cm; Wt 84.4 kg
[2019-12-14 05:30] LABS: BASO % 0 % (0-3); EOS # 0.1 x10^3/uL (0.0-0.7); EOS % 2 % (0-3); HEMOGLOBIN 13.7 g/dL (13.0-17.5); LYMPH % 48 % (24-48); MEAN CORPUSCULAR HEMOGLOBIN 30 pg (25-35); MEAN CORPUSCULAR HGB CONC 33 g/dL (31-37); MEAN CORPUSCULAR VOLUME 90 fL (79-100); MONO # 0.5 x10^3/uL (0.0-1.1); MONO % 8 % (0-9); NEUT # 2.7 x10^3/uL (1.8-7.7); NEUT % 42 % (31-73); PLATELET COUNT 195 x10^3/uL (140-400); RED BLOOD COUNT 4.57 x10^6/uL (4.30-5.70); RED CELL DISTRIBUTION WIDTH 14.3 % (11.5-14.5); WHITE BLOOD COUNT 6.3 x10^3/uL (4.0-11.0)
[2019-12-14] MEDS ORDERED: IV NORMAL SALINE 1000ML BAG 1,000 ML IV ONE (05:30)
[2019-12-14 05:45] LABS: ANION GAP 16 (6-14); BLOOD UREA NITROGEN 12 mg/dL (8-26); BUN/CREATININE RATIO 9 (6-20); CALCIUM 8.7 mg/dL (8.5-10.1); CARBON DIOXIDE 24 mmol/L (21-32); CHLORIDE 100 mmol/L (98-107); CREATININE 1.4 mg/dL (0.7-1.3); GFR 70.2; GLUCOSE 119 mg/dL (70-99); SODIUM 140 mmol/L (136-145)
[2019-12-14 05:51] LABS: ALBUMIN/GLOBULIN RATIO 1.1 (1.0-1.7); ALK PHOS 83 U/L (46-116); ALT (SGPT) 36 U/L (16-63); AST (SGOT) 27 U/L (15-37); PHENY 0.5 mcg/mL (10.0-20.0); TOTAL BILIRUBIN 0.1 mg/dL (0.2-1.0); TOTAL PROTEIN 7.8 g/dL (6.4-8.2)
--- NOTE | 2019-12-14 05:51 | PHYS DOC ---
Past Medical History Past Medical History: Seizure Past Surgical History: No Surgical History Alcohol Use: Heavy Drug Use: None Adult General Chief Complaint Chief Complaint: SEIZURE HPI HPI Patient is a 33 year old male who presents with report of seizure that occurred just prior to arrival. Seizure was witnessed by significant other and she states that it lasted between 2-3 minutes. Patient states that his last seizure was the beginning of this month. EMS reports that patient was initially post ictal upon their arrival. Patient states that he is on Dilantin for seizures. He denies any injuries. He denies any headache or pain. He does indicate that he feels very tired.[] Review of Systems Review of Systems Constitutional: Denies fever or chills [] Respiratory: Denies cough or shortness of breath [] Cardiovascular: No additional information not addressed in HPI [] Musculoskeletal: Denies back pain or joint pain [] Integument: Denies rash or skin lesions [] Neurologic: Denies headache, focal weakness or sensory changes. Positive seizure. [] All other systems were reviewed and found to be within normal limits, except as documented in this note. Current Medications Current Medications Current Medications Medications (Trade) Dose Ordered Sig/Ursula Start Time Stop Time Status Last Admin Dose Admin Lorazepam (Ativan Inj) 1 mg 1X ONCE 12/14/19 05:30 12/14/19 05:51 DC 12/14/19 05:49 1 MG Sodium Chloride 1,000 ml @ 1,000 mls/hr 1X ONCE 12/14/19 05:30 12/14/19 06:29 12/14/19 05:49 1,000 MLS/HR Allergies Allergies Allergies Coded Allergies Type Severity Reaction Last Updated Verified No Known Drug Allergies 11/28/18 No Physical Exam Physical Exam Constitutional: Well developed, well nourished, no acute distress, non-toxic appearance. [] HENT: Normocephalic, atraumatic, bilateral external ears normal, oropharynx mo ist, no oral exudates, nose normal. [] Eyes: PERRLA, EOMI, conjunctiva normal, no discharge. [] Neck: Normal range of motion, no tenderness, supple. [] Cardiovascular: Regular rate and rhythm[] Lungs & Thorax: Bilateral breath sounds clear to auscultation [] Abdomen: Bowel sounds normal, soft, no tenderness. [] Skin: Warm, dry, no erythema, no rash. [] Extremities: No tenderness, no cyanosis, no clubbing, ROM intact, no edema. [] Neurologic: Alert and oriented X 3, no focal deficits noted. [] Current Patient Data Lab Values Laboratory Tests Test 12/14/19 05:21 White Blood Count 6.3 x10^3/uL (4.0-11.0) Red Blood Count 4.57 x10^6/uL (4.30-5.70) Hemoglobin 13.7 g/dL (13.0-17.5) Hematocrit 41.0 % (39.0-53.0) Mean Corpuscular Volume 90 fL (79-100) Mean Corpuscular Hemoglobin 30 pg (25-35) Mean Corpuscular Hemoglobin Concent 33 g/dL (31-37) Red Cell Distribution Width 14.3 % (11.5-14.5) Platelet Count 195 x10^3/uL (140-400) Neutrophils (%) (Auto) 42 % (31-73) Lymphocytes (%) (Auto) 48 % (24-48) Monocytes (%) (Auto) 8 % (0-9) Eosinophils (%) (Auto) 2 % (0-3) Basophils (%) (Auto) 0 % (0-3) Neutrophils # (Auto) 2.7 x10^3/uL (1.8-7.7) Lymphocytes # (Auto) 3.0 x10^3/uL (1.0-4.8) Monocytes # (Auto) 0.5 x10^3/uL (0.0-1.1) Eosinophils # (Auto) 0.1 x10^3/uL (0.0-0.7) Basophils # (Auto) 0.0 x10^3/uL (0.0-0.2) Sodium Level 140 mmol/L (136-145) Potassium Level 4.0 mmol/L (3.5-5.1) Chloride Level 100 mmol/L (98-107) Carbon Dioxide Level 24 mmol/L (21-32) Anion Gap 16 (6-14) H Blood Urea Nitrogen 12 mg/dL (8-26) Creatinine 1.4 mg/dL (0.7-1.3) H Estimated GFR (Cockcroft-Gault) 70.2 BUN/Creatinine Ratio 9 (6-20) Glucose Level 119 mg/dL (70-99) H Calcium Level 8.7 mg/dL (8.5-10.1) Total Bilirubin 0.1 mg/dL (0.2-1.0) L Aspartate Amino Transferase (AST) 27 U/L (15-37) Alanine Aminotransferase (ALT) 36 U/L (16-63) Alkaline Phosphatase 83 U/L (46-116) Total Protein 7.8 g/dL (6.4-8.2) Albumin 4.0 g/dL (3.4-5.0) Albumin/Globulin Ratio 1.1 (1.0-1.7) Phenytoin (Dilantin) Level 0.5 mcg/mL (10.0-20.0) L Phenytoin Last Dose Date 12/13/18 Phenytoin Last Dose Time 1900 Laboratory Tests 12/14/19 05:21 Laboratory Tests 12/14/19 05:21 EKG EKG [] Radiology/Procedures Radiology/Procedures [] Course & Med Decision Making Course & Med Decision Making Pertinent Labs and Imaging studies reviewed. (See chart for details) Patient moved to room upon arrival was evaluated by ER medical staff after which an IV was established and blood work was drawn. Patient given a dose of IV lorazepam. At this time, patient's workup is pending and patient is being signed out to the oncoming ER physician, Dr. Vasquez, at 6:00 AM. Dragon Disclaimer Dragon Disclaimer This electronic medical record was generated, in whole or in part, using a voice recognition dictation system. Departure Departure Impression: Primary Impression: Seizure Disposition: 01 HOME, SELF-CARE Condition: STABLE Referrals: NO PCP (PCP) Patient Instructions: Seizure, Adult ABY ARNOLD Jr. DO Dec 14, 2019 05:51
[2019-12-14] MEDS ORDERED: FOSPHENYTOIN 1,000 MG in IV NORMAL SALINE 50ML 50 ML IV ONE (06:15)
[2019-12-14 08:17] VITALS: BP 133/80
== END 2019-12-14 08:24 | disposition home or self-care (01) ==
LOC: ER 05:05
DX: G40.89 Other seizures (principal)
CPT/HCPCS: 36415; 80053; 80185; 83605; 85025; 96365; 96375; 99284; J2060; J7030; Q2009

== ENCOUNTER 2019-12-22 03:30 | Emergency (ER) | payer OTHER ==
[~2019-12-22] VITALS: Ht 157.5 cm; Wt 81.0 kg
[2019-12-22 03:36] VITALS: BP 154/89
--- NOTE | 2019-12-22 03:48 | PHYS DOC ---
Past Medical History Past Medical History: Seizure Past Surgical History: No Surgical History Alcohol Use: Heavy Drug Use: None Adult General Chief Complaint Chief Complaint: LACERATION/AVULSION [facility] HPI Patient is a 33 year old right-handed male with history of seizure who presents with complaint of left hand laceration. Patient states he had 3 beers and half a pint of hard liquor tonight and jumped over a fence and hand catch on [place] [employer] age of pain is that was like a razor and had laceration of left hand fingers except for index finger that happened about 1.5 hour prior to arrival to ER. Patient rated his pain 9/10 and doesn't want to have pain medication. Patient is not up-to-date with tetanus immunization. Patient denies other injuries and focal neurodeficit or finger weakness. Review of Systems Review of Systems Constitutional: Denies fever or chills [] Eyes: Denies change in visual acuity, redness, or eye pain [] HENT: Denies nasal congestion or sore throat [] Respiratory: Denies cough or shortness of breath [] Cardiovascular: No additional information not addressed in HPI [] GI: Denies abdominal pain, nausea, vomiting, bloody stools or diarrhea [] : Denies dysuria or hematuria [] Musculoskeletal: Denies back pain, reports joint pain [] Integument: Denies rash or skin lesions [] Neurologic: Denies headache, focal weakness or sensory changes [] Endocrine: Denies polyuria or polydipsia [] All other systems were reviewed and found to be within normal limits, except as documented in this note. Current Medications Current Medications Current Medications Medications (Trade) Dose Ordered Sig/[facility] Start Time Stop Time Status Last Admin Dose Admin Diphtheria/ Tetanus/Acell Pertussis (Boostrix) 0.5 ml ONCE ONCE 12/22/19 04:15 12/22/19 04:16 DC 12/22/19 04:14 0.5 ML Ketorolac Tromethamine (Toradol Im) 60 mg 1X ONCE 12/22/19 04:15 12/22/19 04:16 DC 12/22/19 04:15 60 MG Lidocaine HCl (Lidocaine 1% 20ml Vial) 20 ml 1X ONCE 12/22/19 04:00 12/22/19 04:01 DC Allergies Allergies Allergies Coded Allergies Type Severity Reaction Last Updated Verified No Known Drug Allergies 11/28/18 No Physical Exam Physical Exam Constitutional: Well nourished, mild distress, non-toxic appearance, smell of alcohol on breath. [] HENT: Normocephalic, atraumatic Eyes: PERRLA, EOMI, conjunctiva normal, no discharge. [] Neck: Normal range of motion, no tenderness, supple, no stridor. [] Cardiovascular:Heart rate regular rhythm, no murmur [] Lungs & Thorax: Bilateral breath sounds clear to auscultation [] Extremities: Left hand with laceration of all fingers except for index finger, 2 cm laceration of volar side of distal phalanx of fifth finger 1 cm laceration of distal and middle phalanx of fourth finger volar side, 1 cm laceration of volar sides of her finger, 0.5 cm laceration of volar side of town without tendon injury or neurovascular deficit , ROM intact, no edema. [] Neurologic: Alert and oriented X 3, normal motor function, normal sensory function, no focal deficits noted. [] Psychologic: Affect anxious, mood normal. [] Current Patient Data Vital Signs Vital Signs Date Time Temp Pulse Resp B/P (MAP) Pulse Ox O2 Delivery O2 Flow Rate FiO2 12/22/19 03:36 98.1 91 20 154/89 (110) 96 Room Air 98.1 EKG EKG [] Radiology/Procedures Radiology/Procedures [facility] [address] [place] [address] IMAGING REPORT Signed PATIENT: SURESH GONZALES ACCOUNT: [id number] : 1985 LOCATION: ER AGE: 33 SEX: M EXAM STATUS: REG ER ORD. PHYSICIAN: MANOLO GAMING MD REASON: fingers injury PROCEDURE: HAND LEFT 3V 3 views left hand AP lateral oblique HISTORY: Finger injury The visualized osseous structures appear normal. IMPRESSION: No acute findings. Electronically signed by: Nathan Zacarias III, MD (12/22/2019 4:32 AM) [id number] DICTATED and SIGNED BY: NATHAN ZACARIAS III, MD DATE: 12/22/19 0432 Course & Med Decision Making Course & Med Decision Making Pertinent Imaging studies reviewed. (See chart for details) Evolution of patient in ER showed 33-year-old male patient with multiple left fingers laceration that was repaired with sutures and Dermabond and asleep w ithout tendon injury or neurovascular deficit. I've spoken with the patient and/or caregivers. I've explained the patient's condition, diagnosis and treatment plan based on information available to me at this time. I've answered the patient's and/or caregivers questions and addressed any concerns. The patient and/or caregivers have a good understanding the patient's diagnosis, condition and treatment plan as can be expected at this point. Vital signs have been stabilized. The patient's condition is stable for discharge from the emergency department. The patient will pursue further outpatient evaluation with her primary care provider or other designated consulting physician as outlined in the discharge instructions. Patient and/or caregivers are agreeable to this plan of care and follow-up instructions have been explained in detail. The patient and/or caregivers have received these instructions in written format and expressed understanding of these discharge instructions. The patient and her caregivers are aware that if any significant change in condition or worsening of symptoms should prompt him to immediately return to this of the closest emergency department. If an emergent department is not readily available I would encourage him to call 911. Karenon Disclaimer Dragon Disclaimer This electronic medical record was generated, in whole or in part, using a voice recognition dictation system. Departure Departure Impression: Primary Impression: Laceration of fingers without complication Additional Impression: Alcohol intoxication Disposition: HOME, SELF-CARE (at 0 545) Condition: IMPROVED Referrals: NO PCP (PCP) Patient Instructions: Alcohol Intoxication, Soft Tissue Injury of the Neck, [id number], Sutured Wound Care Additional Instructions: Keep wound clean and dry Follow-up with your primary care physician or emergency room or urgent care in 10 days for suture removal Return to ER if not getting better Scripts Naproxen (NAPROSYN) 500 Mg Tablet 1 TAB PO BID for pain, #20 TAB Prov: MANOLO GAMING MD 12/22/19 Cephalexin (KEFLEX) 500 Mg Capsule 1 CAP PO Q8HRS, #21 CAP 0 Refills Prov: MANOLO GAMING MD 12/22/19 Laceration Repair Lac Repair Indication: Left fourth finger, left fifth finger, left first and third finger Procedure: The patient was placed in the appropriate position and anesthesia digital block of left fourth finger was given with 1% of lidocaine. Large longitudinal 4 cm laceration of left fourth fingertip was repaired with 8 stitches of 4-0 nylon. The area was then cleaned and nonadhesive dressing was applied. The laceration was repaired in 1 layer. Left fifth finger 2 cm laceration was repaired with 3 stitches of 4-0 nylon after local anesthesia with 1% lidocaine. The wound area was then dressed with nonadhesive dressing. 2 area of superficial laceration of left palm and left third finger was repaired with Dermabond and Steri-Strip.. Total repaired wound length: 8 cm Other Items: None The patient tolerated the procedure well. Complications: none. Problem Qualifiers Primary Impression: Laceration of fingers without complication Encounter type: initial encounter Qualified Codes: S61.219A - Laceration w ithout foreign body of unspecified finger without damage to nail, initial encounter Additional Impression: Alcohol intoxication Complication of substance-induced condition: uncomplicated Qualified Codes: F10.920 - Alcohol use, unspecified with intoxication, uncomplicated MANOLO GAMING MD Dec 22, 2019 03:48
[2019-12-22] MEDS ORDERED: LIDOCAINE 1% Multi-Dose 20 ML VIAL. INJ ONE (04:00)
[2019-12-22] MEDS ORDERED: KETOROLAC 60 MG/2 ML VIAL. IM ONE (04:15)
[2019-12-22] MEDS ORDERED: DIPHTH,PERTUSS(ACELL),TET TOX 0.5 ML DISP.SYRIN. VAX IM ONE (04:15)
--- NOTE | 2019-12-22 04:35 | RAD ---
3 views left hand AP lateral oblique HISTORY: Finger injury The visualized osseous structures appear normal. IMPRESSION: No acute findings. Electronically signed by: Joaquim Alston III, MD (12/22/2019 4:32 AM) [id number]
[2019-12-22] MEDS ORDERED: CEPH-264 PO (05:48)
[2019-12-22] MEDS ORDERED: NAPR-683 PO (05:48)
== END 2019-12-22 06:07 | disposition home or self-care (01) ==
LOC: ER 03:30
DX: S61.213A Laceration without foreign body of left middle finger without damage to nail, initial encounter (principal); S61.215A Laceration without foreign body of left ring finger without damage to nail, initial encounter; S61.217A Laceration without foreign body of left little finger without damage to nail, initial encounter; F10.229 Alcohol dependence with intoxication, unspecified; Y30.XXXA Falling, jumping or pushed from a high place, undetermined intent, initial encounter; Y93.89 Activity, other specified; Y92.89 Other specified places as the place of occurrence of the external cause; Y99.8 Other external cause status
CPT/HCPCS: 12004; 73130; 90471; 90715; 96372; 99284; J1885

== ENCOUNTER 2020-01-02 10:55 | Emergency (ER) | payer OTHER ==
[~2020-01-02] VITALS: Ht 157.5 cm; Wt 81.8 kg
[~2020-01-02 10:55] MED LIST changes: +CEPH-264 PO; +NAPR-683 PO
[2020-01-02 11:15] VITALS: BP 135/63
--- NOTE | 2020-01-02 11:28 | PHYS DOC ---
Past Medical History Past Medical History: No Pertinent History, Seizure Past Surgical History: No Surgical History Smoking Status: Former Smoker Alcohol Use: Heavy Drug Use: None Adult General Chief Complaint Chief Complaint: SUTURE/STAPLE REMOVAL [facility] Patient is a 34 year old male who presents for suture removal. The patient caught his L hand on romain wire x 2 weeks ago and had laceration to his L 3rd digit. Denies any complications. States he has been keeping it covered the entire time. Complete ROS were reviewed and found to be within normal limits, except as documented in the [facility] Allergies Allergies Allergies Coded Allergies Type Severity Reaction Last Updated Verified No Known Drug Allergies 11/28/18 No Physical Exam Physical Exam Constitutional: Well developed, well nourished, no acute distress, non-toxic a ppearance. [] HENT: Normocephalic, atraumatic, bilateral external ears normal, oropharynx moist, no oral exudates, nose normal. [] Eyes: PERRLA, EOMI, conjunctiva normal, no discharge. [] Neck: Normal range of motion, no tenderness, supple, no stridor. [] Skin: Laceration is healing, no erythema or exudate. Neurologic: Alert and oriented X 3, normal motor function, normal sensory function, no focal deficits noted. [] Psychologic: Affect normal, judgement normal, mood normal. [] Current Patient Data Vital Signs Vital Signs Date Time Temp Pulse Resp B/P (MAP) Pulse Ox O2 Delivery O2 Flow Rate FiO2 01/02/20 11:15 97.8 65 16 135/63 (87) 98 Room Air 97.8 EKG EKG [] Radiology/Procedures Radiology/Procedures [] Course & Med Decision Making Course & Med Decision Making Pertinent Labs and Imaging studies reviewed. (See chart for details) Sutures removed by nursing staff. Laceration on distal 3rd finger has not completely approximated. Will place steri-strip to keep skin together and let finish healing. Dragon Disclaimer Dragon Disclaimer This electronic medical record was generated, in whole or in part, using a voice recognition dictation system. Departure Departure Impression: Primary Impression: Visit for suture removal Disposition: HOME, SELF-CARE Condition: STABLE Referrals: NO PCP (PCP) Patient Instructions: Suture Removal Additional Instructions: Thank you for visiting [facility]. We appreciate you trusting us with your care. If any additional problems come up don't hesitate to return to visit us. Please follow up with your primary care provider so they can plan additional care if needed and know about the problem that you had. If symptoms worsen come back to the Emergency Department. Any concerning symptoms that start such as chest pain, shortness of air, weakness or numbness on one side of the body, running high fevers or any other concerning symptoms return to the ER. GAGE CORRALES APRN Jan 02, 2020 11:28
== END 2020-01-02 11:36 | disposition home or self-care (01) ==
LOC: ER 10:55
DX: S61.213D Laceration without foreign body of left middle finger without damage to nail, subsequent encounter (principal); F17.200 Nicotine dependence, unspecified, uncomplicated; F10.10 Alcohol abuse, uncomplicated; V00-Y99 External causes of morbidity
CPT/HCPCS: 99281

== ENCOUNTER 2020-02-17 20:35 | Emergency (ER) | payer SELFPAY ==
[~2020-02-17] VITALS: Ht 182.9 cm; Wt 80.0 kg
[2020-02-17 20:38] VITALS: BP 144/96
--- NOTE | 2020-02-17 20:52 | PHYS DOC ---
Past Medical History Past Medical History: No Pertinent History, Seizure Past Surgical History: No Surgical History Smoking Status: Former Smoker Alcohol Use: Heavy Drug Use: None Adult General Chief Complaint Chief Complaint: SEIZURE HPI HPI 34-year-old male presents the emergency department with complaints of seizure. Patient has a history of seizure disorder however does not take medications. Unknown length of time of seizure activity. Patient is currently postictal. Blood sugar 97. Temperature 99 orally. Full reviews of systems unable to be obtained secondary to patient's postictal state. Review of Systems Review of Systems Unable to obtain ROS 2/2 postictal state All other systems were reviewed and found to be within normal limits, except as documented in this note. Current Medications Current Medications Current Medications Medications (Trade) Dose Ordered Sig/Ursula Start Time Stop Time Status Last Admin Dose Admin Acetaminophen (Tylenol) 650 mg 1X ONCE 02/17/20 21:30 02/17/20 21:31 DC 02/17/20 21:28 650 MG Potassium Chloride (Klor-Con) 40 meq 1X ONCE 02/17/20 21:30 02/17/20 21:31 DC Allergies Allergies Allergies Coded Allergies Type Severity Reaction Last Updated Verified No Known Drug Allergies 11/28/18 No Physical Exam Physical Exam Constitutional: Well developed, well nourished, no acute distress, non-toxic appearance. [] HENT: Normocephalic, atraumatic, bilateral external ears normal, oropharynx moist, no oral exudates, nose normal. [] Eyes: PERRLA, EOMI, conjunctiva normal, no discharge. [] Cardiovascular:Heart rate regular rhythm, no murmur [] Lungs & Thorax: Bilateral breath sounds clear to auscultation [] Abdomen: Bowel sounds normal, soft, no tenderness, no masses, no pulsatile masses. [] Skin: Warm, dry, no erythema, no rash. [] Extremities: No tenderness, no edema. [] Neurologic: Alert and oriented X 3, no focal deficits noted. [] Psychologic: Affect normal, judgement normal, mood normal. [] Current Patient Data Lab Values Laboratory Tests Test 02/17/20 20:40 02/17/20 20:47 White Blood Count 12.7 x10^3/uL (4.0-11.0) H Red Blood Count 5.22 x10^6/uL (4.30-5.70) Hemoglobin 15.7 g/dL (13.0-17.5) Hematocrit 48.5 % (39.0-53.0) Mean Corpuscular Volume 93 fL (79-100) Mean Corpuscular Hemoglobin 30 pg (25-35) Mean Corpuscular Hemoglobin Concent 32 g/dL (31-37) Red Cell Distribution Width 13.8 % (11.5-14.5) Platelet Count 248 x10^3/uL (140-400) Neutrophils (%) (Auto) 32 % (31-73) Lymphocytes (%) (Auto) 57 % (24-48) H Monocytes (%) (Auto) 9 % (0-9) Eosinophils (%) (Auto) 1 % (0-3) Basophils (%) (Auto) 1 % (0-3) Neutrophils # (Auto) 4.1 x10^3/uL (1.8-7.7) Lymphocytes # (Auto) 7.3 x10^3/uL (1.0-4.8) H Monocytes # (Auto) 1.1 x10^3/uL (0.0-1.1) Eosinophils # (Auto) 0.2 x10^3/uL (0.0-0.7) Basophils # (Auto) 0.1 x10^3/uL (0.0-0.2) Segmented Neutrophils % 35 % (35-66) Lymphocytes % 57 % (24-48) H Atypical Lymphocytes % (Manual) 1 % (0-0) H Monocytes % 5 % (0-10) Eosinophils % 2 % (0-5) Platelet Estimate Adequate (ADEQUATE) Sodium Level 140 mmol/L (136-145) Potassium Level 2.9 mmol/L (3.5-5.1) *L Chloride Level 98 mmol/L (98-107) Carbon Dioxide Level 13 mmol/L (21-32) L Anion Gap 29 (6-14) H Blood Urea Nitrogen 12 mg/dL (8-26) Creatinine 1.7 mg/dL (0.7-1.3) H Estimated GFR (Cockcroft-Gault) 55.8 BUN/Creatinine Ratio 7 (6-20) Glucose Level 110 mg/dL (70-99) H Lactic Acid Level 19.3 mmol/L (0.4-2.0) *H Calcium Level 9.1 mg/dL (8.5-10.1) Total Bilirubin 0.2 mg/dL (0.2-1.0) Aspartate Amino Transferase (AST) 32 U/L (15-37) Alanine Aminotransferase (ALT) 37 U/L (16-63) Alkaline Phosphatase 100 U/L (46-116) Creatine Kinase 289 U/L (39-308) Total Protein 9.4 g/dL (6.4-8.2) H Albumin 4.6 g/dL (3.4-5.0) Albumin/Globulin Ratio 1.0 (1.0-1.7) Phenytoin (Dilantin) Level 7.5 mcg/mL (10.0-20.0) L Phenytoin Last Dose Date 02/17/20 Phenytoin Last Dose Time 0900 Glucose (Fingerstick) 97 mg/dL (70-99) Laboratory Tests 02/17/20 20:40 Laboratory Tests 02/17/20 20:40 EKG EKG [] Radiology/Procedures Radiology/Procedures [] Course & Med Decision Making Course & Med Decision Making Pertinent Labs and Imaging studies reviewed. (See chart for details) []34-year-old male presents the emergency department with complaints of seizure. Patient has a history of seizure disorder however does not take medications. Unknown length of time of seizure activity. Patient is currently postictal. Blood sugar 97. Temperature 99 orally. Full reviews of systems unable to be obtained secondary to patient's postictal state. Labs reviewed, potassium low at 2.9, lactic acid elevated secondary to seizure Patient states he is on phenytoin 100 mg p.o. 3 times daily, states he has been running low on his medication and therefore not been taking the full dose. No imaging at this time given known history of seizure disorder No evidence of acute infectious etiology at this time. Patient provided with IV fluids during his ER visit Recommend discharge home and follow-up as an outpatient with primary care physician Jolene Disclaimer Jolene Disclaimer This electronic medical record was generated, in whole or in part, using a voice recognition dictation system. Departure Departure Impression: Primary Impression: Seizure Additional Impression: Hypokalemia Disposition: HOME, SELF-CARE Condition: IMPROVED Referrals: NO PCP (PCP) Patient Instructions: Seizure, Adult Additional Instructions: Recommend taking phenytoin as directed Potassium replaced in ER Follow up with your PCP 3 - 5 days for seizure disorder Tylenol as needed for fever Scripts Phenytoin Sodium Extended (PHENYTOIN SODIUM EXTENDED) 200 Mg Capsule 200 MG PO TID, #90 CAP Prov: SHASHA SIMPSON MD 02/17/20 Problem Qualifiers SHASHA SIMPSON MD Feb 17, 2020 20:52
[2020-02-17 21:02] LABS: BASO # 0.1 x10^3/uL (0.0-0.2); BASO % 1 % (0-3); EOS # 0.2 x10^3/uL (0.0-0.7); EOS % 1 % (0-3); HEMATOCRIT 48.5 % (39.0-53.0); HEMOGLOBIN 15.7 g/dL (13.0-17.5); LYMPH # 7.3 x10^3/uL (1.0-4.8); LYMPH % 57 % (24-48); MEAN CORPUSCULAR HEMOGLOBIN 30 pg (25-35); MEAN CORPUSCULAR HGB CONC 32 g/dL (31-37); MEAN CORPUSCULAR VOLUME 93 fL (79-100); MONO # 1.1 x10^3/uL (0.0-1.1); MONO % 9 % (0-9); NEUT # 4.1 x10^3/uL (1.8-7.7); NEUT % 32 % (31-73); PLATELET COUNT 248 x10^3/uL (140-400); RED BLOOD COUNT 5.22 x10^6/uL (4.30-5.70); RED CELL DISTRIBUTION WIDTH 13.8 % (11.5-14.5); WHITE BLOOD COUNT 12.7 x10^3/uL (4.0-11.0)
[2020-02-17 21:17] LABS: ALBUMIN 4.6 g/dL (3.4-5.0); CALCIUM 9.1 mg/dL (8.5-10.1); CREATININE 1.7 mg/dL (0.7-1.3); GFR 55.8; TOTAL BILIRUBIN 0.2 mg/dL (0.2-1.0); TOTAL PROTEIN 9.4 g/dL (6.4-8.2)
[2020-02-17 21:20] LABS: POTASSIUM 2.9 mmol/L (3.5-5.1)
[2020-02-17 21:29] LABS: % ATYL 1 % (0-0); % EOS 2 % (0-5); % LYMPHS 57 % (24-48); % MONOS 5 % (0-10); % SEGS 35 % (35-66); PLT ESTIMATE ADEQUATE (ADEQUATE)
[2020-02-17] MEDS ORDERED: POTASSIUM CHLORIDE 20 MEQ TABLET.ER. PO ONE (21:30)
[2020-02-17] MEDS ORDERED: ACETAMINOPHEN 325 MG TABLET. PO ONE (21:30)
[2020-02-17 21:50] LABS: PHENY 7.5 mcg/mL (10.0-20.0)
[2020-02-17] MEDS ORDERED: PHEN200C3 PO (22:07)
== END 2020-02-17 22:36 | disposition home or self-care (01) ==
LOC: ER 20:41
DX: G40.909 Epilepsy, unspecified, not intractable, without status epilepticus (principal); E87.6 Hypokalemia; F10.10 Alcohol abuse, uncomplicated; Z87.891 Personal history of nicotine dependence
CPT/HCPCS: 36415; 80053; 80185; 82550; 82962; 83605; 85007; 85025; 99284

== ENCOUNTER 2020-04-21 21:49 | Emergency (ER) | payer SELFPAY ==
[~2020-04-21] VITALS: Ht 177.8 cm; Wt 88.6 kg
[~2020-04-21 21:49] MED LIST changes: +PHEN200C3 PO
[2020-04-21 22:12] LABS: BASO % 1 % (0-3); EOS # 0.1 x10^3/uL (0.0-0.7); EOS % 1 % (0-3); HEMATOCRIT 43.2 % (39.0-53.0); HEMOGLOBIN 14.7 g/dL (13.0-17.5); LYMPH # 5.6 x10^3/uL (1.0-4.8); LYMPH % 56 % (24-48); MEAN CORPUSCULAR HEMOGLOBIN 31 pg (25-35); MEAN CORPUSCULAR HGB CONC 34 g/dL (31-37); MEAN CORPUSCULAR VOLUME 90 fL (79-100); MONO # 0.7 x10^3/uL (0.0-1.1); MONO % 7 % (0-9); NEUT # 3.5 x10^3/uL (1.8-7.7); NEUT % 36 % (31-73); PLATELET COUNT 204 x10^3/uL (140-400); RED BLOOD COUNT 4.79 x10^6/uL (4.30-5.70); RED CELL DISTRIBUTION WIDTH 13.7 % (11.5-14.5); WHITE BLOOD COUNT 9.9 x10^3/uL (4.0-11.0)
[2020-04-21] MEDS ORDERED: IV NORMAL SALINE 1000ML BAG 1,000 ML IV ONE (22:15)
[2020-04-21 22:28] LABS: ANION GAP 21 (6-14); BLOOD UREA NITROGEN 14 mg/dL (8-26); BUN/CREATININE RATIO 8 (6-20); CALCIUM 8.7 mg/dL (8.5-10.1); CARBON DIOXIDE 18 mmol/L (21-32); CHLORIDE 99 mmol/L (98-107); CREATININE 1.8 mg/dL (0.7-1.3); GFR 52.2; GLUCOSE 159 mg/dL (70-99); POTASSIUM 3.4 mmol/L (3.5-5.1); SODIUM 138 mmol/L (136-145)
[2020-04-21 22:33] LABS: ALK PHOS 78 U/L (46-116); ALT (SGPT) 44 U/L (16-63); AST (SGOT) 29 U/L (15-37); TOTAL BILIRUBIN 0.3 mg/dL (0.2-1.0); TOTAL PROTEIN 8.2 g/dL (6.4-8.2)
[2020-04-21 22:35] LABS: PHENY < 0.5 mcg/mL (10.0-20.0)
--- NOTE | 2020-04-21 22:37 | PHYS DOC ---
Past Medical History Past Medical History: Seizure Past Surgical History: No Surgical History Smoking Status: Former Smoker Alcohol Use: Heavy Drug Use: None General Adult EDM: Chief Complaint: SEIZURE HPI: HPI: Patient is a 34 year old male who reports via EMS with complaint of seizure x2 at home. Patient has history of seizures and states that he is on seizure medication but when asked what he is on, patient is just not answering. Additional history is limited as patient is not answering questions. [] Review of Systems: Review of Systems: Constitutional: Denies fever or chills. [] Respiratory: Denies cough or shortness of breath. [] Cardiovascular: Denies chest pain or edema. [] GI: Denies abdominal pain, nausea, vomiting or diarrhea. [] Integument: Denies rash. [] Neurologic: Denies headache, focal weakness or sensory changes. [] Heart Score: Risk Factors: Risk Factors: DM, Current or recent (<one month) smoker, HTN, HLP, family history of CAD, obesity. Risk Scores: Score 0 - 3: 2.5% MACE over next 6 weeks - Discharge Home Score 4 - 6: 20.3% MACE over next 6 weeks - Admit for Clinical Observation Score 7 - 10: 72.7% MACE over next 6 weeks - Early Invasive Strategies Current Medications: Current Medications Medications (Trade) Dose Ordered Sig/Ursula Start Time Stop Time Status Last Admin Dose Admin Lorazepam (Ativan Inj) 2 mg STK-MED ONCE 04/21/20 22:09 04/21/20 22:09 DC Sodium Chloride 1,000 ml @ 1,000 mls/hr 1X ONCE 04/21/20 22:15 04/21/20 23:14 04/21/20 22:11 1,000 MLS/HR Allergies: Allergies: Allergies Coded Allergies Type Severity Reaction Last Updated Verified No Known Drug Allergies 11/28/18 No Physical Exam: PE: Constitutional: Well developed, well nourished, no acute distress, non-toxic appearance. [] Neck: Normal range of motion, no tenderness, supple, no stridor. [] Cardiovascular: Regular rate and rhythm [] Lungs & Thorax: Bilateral breath sounds clear to auscultation [] Abdomen: Bowel sounds normal, soft, no tenderness, no masses, no pulsatile masses. [] Skin: Warm, dry, no erythema, no rash. [] Extremities: No tenderness, no cyanosis, no clubbing, ROM intact, no edema. [] Neurologic: Alert and oriented X 3, no focal deficits noted. [] Current Patient Data: Labs: Laboratory Tests Test 04/21/20 22:05 White Blood Count 9.9 x10^3/uL (4.0-11.0) Red Blood Count 4.79 x10^6/uL (4.30-5.70) Hemoglobin 14.7 g/dL (13.0-17.5) Hematocrit 43.2 % (39.0-53.0) Mean Corpuscular Volume 90 fL (79-100) Mean Corpuscular Hemoglobin 31 pg (25-35) Mean Corpuscular Hemoglobin Concent 34 g/dL (31-37) Red Cell Distribution Width 13.7 % (11.5-14.5) Platelet Count 204 x10^3/uL (140-400) Neutrophils (%) (Auto) 36 % (31-73) Lymphocytes (%) (Auto) 56 % (24-48) H Monocytes (%) (Auto) 7 % (0-9) Eosinophils (%) (Auto) 1 % (0-3) Basophils (%) (Auto) 1 % (0-3) Neutrophils # (Auto) 3.5 x10^3/uL (1.8-7.7) Lymphocytes # (Auto) 5.6 x10^3/uL (1.0-4.8) H Monocytes # (Auto) 0.7 x10^3/uL (0.0-1.1) Eosinophils # (Auto) 0.1 x10^3/uL (0.0-0.7) Basophils # (Auto) 0.0 x10^3/uL (0.0-0.2) Platelet Estimate Pending Sodium Level 138 mmol/L (136-145) Potassium Level 3.4 mmol/L (3.5-5.1) L Chloride Level 99 mmol/L (98-107) Carbon Dioxide Level 18 mmol/L (21-32) L Anion Gap 21 (6-14) H Blood Urea Nitrogen 14 mg/dL (8-26) Creatinine 1.8 mg/dL (0.7-1.3) H Estimated GFR (Cockcroft-Gault) 52.2 BUN/Creatinine Ratio 8 (6-20) Glucose Level 159 mg/dL (70-99) H Calcium Level 8.7 mg/dL (8.5-10.1) Total Bilirubin Pending Aspartate Amino Transferase (AST) Pending Alanine Aminotransferase (ALT) Pending Alkaline Phosphatase Pending Total Protein Pending Albumin Pending Albumin/Globulin Ratio Pending Phenytoin (Dilantin) Level Pending Phenytoin Last Dose Date Pending Phenytoin Last Dose Time Pending Laboratory Tests 04/21/20 22:05 Laboratory Tests 04/21/20 22:05 Vital Signs: Vital Signs Date Time Temp Pulse Resp B/P (MAP) Pulse Ox O2 Delivery O2 Flow Rate FiO2 04/21/20 21:49 98.7 104 16 142/69 (93) 92 Room Air 98.7 EKG: EKG: [] Radiology/Procedures: Radiology/Procedures: [] Course & Med Decision Making: Course & Med Decision Making Pertinent Labs and Imaging studies reviewed. (See chart for details) [] Dragon Disclaimer: Dragon Disclaimer: This electronic medical record was generated, in whole or in part, using a voice recognition dictation system. Departure Departure Impression: Primary Impression: Seizure disorder Additional Impression: Chronic renal insufficiency Qualified Codes: N18.9 - Chronic kidney disease, unspecified Disposition: 01 HOME, SELF-CARE Condition: STABLE Referrals: NO PCP (PCP) Patient Instructions: Chronic Renal Insufficiency, Seizure, Adult Additional Instructions: Call to schedule follow-up appointment with primary care provider or neurologist for ongoing management of seizure disorder. Scripts Phenytoin Sodium Extended (DILANTIN) 100 Mg Capsule 1 CAP PO TID, #90 CAP Prov: ABY ARNOLD Jr. DO 04/21/20 ABY ARNOLD Jr. DO Apr 21, 2020 22:37
[2020-04-21 22:51] LABS: % ATYL 1 % (0-0); % EOS 3 % (0-5); % LYMPHS 58 % (24-48); % MONOS 4 % (0-10); % SEGS 34 % (35-66); PLT ESTIMATE ADEQUATE (ADEQUATE)
[2020-04-21] MEDS ORDERED: FOSPHENYTOIN 1,000 MG in IV NORMAL SALINE 50ML 50 ML IV ONE (23:15)
[2020-04-21 23:53] VITALS: BP 90/55
[2020-04-21] MEDS ORDERED: PHEN100C PO (23:56)
== END 2020-04-22 00:05 | disposition home or self-care (01) ==
LOC: ER 21:49
DX: G40.909 Epilepsy, unspecified, not intractable, without status epilepticus (principal); N18.9 Chronic kidney disease, unspecified; Z87.891 Personal history of nicotine dependence
CPT/HCPCS: 36415; 80053; 80185; 83605; 85007; 85025; 96365; 96375; 99285; J2060; J7030; Q2009

== ENCOUNTER 2020-10-16 13:26 | Emergency (ER) | payer SELFPAY ==
[~2020-10-16] VITALS: Ht 157.5 cm; Wt 85.0 kg
[2020-10-16 13:40] VITALS: BP 123/73
[2020-10-16] MEDS ORDERED: PHEN300C4 PO (13:56)
--- NOTE | 2020-10-16 13:57 | PHYS DOC ---
Past Medical History Past Medical History: Seizure Past Surgical History: No Surgical History Smoking Status: Former Smoker Alcohol Use: Heavy Drug Use: None General Adult EDM: Chief Complaint: MEDICATION REFILL HPI: HPI: Patient is a 34 year old male who presents with states yesterday he started to feel like he was going to have a seizure. He states that yesterday he ran out of his phenytoin. He states he takes 300 mg daily. He states that he did not have a seizure. Patient denies nausea, vomiting, diarrhea, fever, headache, dizziness, numbness or tingling, focal weakness, vision changes, abdominal pain, chest pain, shortness of air, cough, back pain. Review of Systems: Review of Systems: Constitutional: Denies fever or chills. [] Eyes: Denies change in visual acuity. [] HENT: Denies nasal congestion or sore throat. [] Respiratory: Denies cough or shortness of breath. [] Cardiovascular: Denies chest pain or edema. [] GI: Denies abdominal pain, nausea, vomiting, bloody stools or diarrhea. [] : Denies dysuria. [] Musculoskeletal: Denies back pain or joint pain. [] Integument: Denies rash. [] Neurologic: Denies headache, focal weakness or sensory changes. + Out of seizure medication [] Endocrine: Denies polyuria or polydipsia. [] Lymphatic: Denies swollen glands. [] Psychiatric: Denies depression or anxiety. [] Heart Score: Risk Factors: Risk Factors: DM, Current or recent (<one month) smoker, HTN, HLP, family history of CAD, obesity. Risk Scores: Score 0 - 3: 2.5% MACE over next 6 weeks - Discharge Home Score 4 - 6: 20.3% MACE over next 6 weeks - Admit for Clinical Observation Score 7 - 10: 72.7% MACE over next 6 weeks - Early Invasive Strategies Allergies: Allergies: Allergies Coded Allergies Type Severity Reaction Last Updated Verified No Known Drug Allergies 11/28/18 No Physical Exam: PE: Constitutional: Well developed, well nourished, no acute distress, non-toxic appearance. [] HENT: Normocephalic, atraumatic, bilateral external ears normal, oropharynx moist, no oral exudates, nose normal. [] Eyes: PERRLA, EOMI, conjunctiva normal, no discharge. [] Neck: Normal range of motion, no tenderness, supple, no stridor. [] Cardiovascular:Heart rate regular rhythm, no murmur [] Lungs & Thorax: Bilateral breath sounds clear to auscultation [] Abdomen: Bowel sounds normal, soft, no tenderness, no masses, no pulsatile masses. [] Skin: Warm, dry, no erythema, no rash. [] Back: No tenderness, no CVA tenderness. [] Extremities: No tenderness, no cyanosis, no clubbing, ROM intact, no edema. [] Neurologic: Alert and oriented X 3, normal motor function, normal sensory function, no focal deficits noted. [] Psychologic: Affect normal, judgement normal, mood normal. Normal physical exam [] EKG: EKG: [] Radiology/Procedures: Radiology/Procedures: [] Course & Med Decision Making: Course & Med Decision Making Pertinent Labs and Imaging studies reviewed. (See chart for details) See HPI. Alert and oriented x4. Speaks in full complete sentences. Ambulatory with a steady gait. PERRLA. Skin pink warm and dry. Patient is given a prescription for phenytoin. Patient is educated he needs to follow-up with a primary care neurologist. [] Dragon Disclaimer: Dragon Disclaimer: This electronic medical record was generated, in whole or in part, using a voice recognition dictation system. Departure Departure Impression: Primary Impression: Medication refill Disposition: 01 DC HOME SELF CARE/HOMELESS Condition: STABLE Referrals: NO PCP (PCP) PAWEL ETIENNE MD Patient Instructions: Medication Refill, Emergency Department Additional Instructions: Follow-up with a neurologist or primary care provider. I have referred you to a neurologist. Take your medication as prescribed. Scripts Phenytoin Sodium Extended (PHENYTOIN SODIUM EXTENDED) 300 Mg Capsule 1 CAP PO DAILY for 30 Days, #30 CAP 0 Refills Prov: MING WASHINGTON APRN 10/16/20 MING WASHINGTON APRN Oct 16, 2020 13:57
== END 2020-10-16 14:15 | disposition home or self-care (01) ==
LOC: ER 13:26
DX: R56.9 Unspecified convulsions (principal); Z76.0 Encounter for issue of repeat prescription; Z87.891 Personal history of nicotine dependence; F10.20 Alcohol dependence, uncomplicated; Y90.9 Presence of alcohol in blood, level not specified
CPT/HCPCS: 99281

== ENCOUNTER 2021-02-08 19:44 | Emergency (ER) | payer SELFPAY ==
[~2021-02-08] VITALS: Ht 157.5 cm; Wt 77.2 kg
[~2021-02-08 19:44] MED LIST changes: +PHEN300C4 PO
[2021-02-08] MEDS ORDERED: FOSPHENYTOIN 1,000 MG in IV NORMAL SALINE 50ML 50 ML IV ONE (20:15)
[2021-02-08 20:23] LABS: BASO % 0 % (0-3); EOS # 0.1 x10^3/uL (0.0-0.7); EOS % 1 % (0-3); HEMOGLOBIN 14.9 g/dL (13.0-17.5); LYMPH # 3.2 x10^3/uL (1.0-4.8); LYMPH % 40 % (24-48); MEAN CORPUSCULAR HEMOGLOBIN 31 pg (25-35); MEAN CORPUSCULAR HGB CONC 33 g/dL (31-37); MEAN CORPUSCULAR VOLUME 93 fL (79-100); MONO # 0.7 x10^3/uL (0.0-1.1); MONO % 8 % (0-9); NEUT # 4.1 x10^3/uL (1.8-7.7); NEUT % 51 % (31-73); PLATELET COUNT 183 x10^3/uL (140-400); RED BLOOD COUNT 4.87 x10^6/uL (4.30-5.70); RED CELL DISTRIBUTION WIDTH 13.6 % (11.5-14.5); WHITE BLOOD COUNT 8.1 x10^3/uL (4.0-11.0)
[2021-02-08 20:36] LABS: ANION GAP 20 (6-14); BLOOD UREA NITROGEN 16 mg/dL (8-26); BUN/CREATININE RATIO 9 (6-20); CALCIUM 9.5 mg/dL (8.5-10.1); CARBON DIOXIDE 20 mmol/L (21-32); CHLORIDE 97 mmol/L (98-107); CREATININE 1.8 mg/dL (0.7-1.3); GFR 51.9; GLUCOSE 155 mg/dL (70-99); POTASSIUM 3.8 mmol/L (3.5-5.1); SODIUM 137 mmol/L (136-145)
[2021-02-08 20:41] LABS: ACETAMIN < 2.0 mcg/ml (10-30); ALBUMIN 4.3 g/dL (3.4-5.0); ALK PHOS 92 U/L (46-116); ALT (SGPT) 56 U/L (16-63); AST (SGOT) 29 U/L (15-37); ETHANOL < 10 mg/dL (0-10); LIPASE 216 U/L (73-393); MAGNESIUM 2.2 mg/dL (1.8-2.4); PHENY 1.8 mcg/mL (10.0-20.0); SALIC < 2.8 mg/dL (2.8-20.0); TOTAL BILIRUBIN 0.3 mg/dL (0.2-1.0); TOTAL PROTEIN 8.5 g/dL (6.4-8.2)
--- NOTE | 2021-02-08 21:54 | EKG ---
[facility] [address] [place] [address] Test Date: 2021-02-08 Test Time: 19:53:00 Pat Name: SURESH GONZALES Department: Room: Gender: M [employer]: : 1985 Requested By: CHRISTINA AGUIAR Order Number: [id number] Reading MD: Measurements Intervals [place] Rate: 93 P: 59 [place]: 152 QRS: 18 QRSD: 90 T: 14 QT: 350 QTc: 438 Interpretive Statements SINUS RHYTHM NORMAL ECG RI6.02 No previous ECG available for comparison
[2021-02-08 22:16] LABS: BILIRUBIN,URINE NEGATIVE (NEG); CLARITY,URINE CLEAR; COLOR,URINE YELLOW; NITRITE,URINE NEGATIVE (NEG); PH,URINE 5.5 (<5.0-8.0); PROTEIN,URINE 30 mg/dL (NEG-TRACE); UROBILINOGEN,URINE 0.2 mg/dL (0.2 mg/dL)
[2021-02-08 22:21] LABS: AMPHETAMINE/METHAMPHETAMINE NEG (NEG); BARBITURATES NEG (NEG); BENZODIAZEPINES NEG (NEG); CANNABINOIDS NEG (NEG); COCAINE NEG (NEG); METHADONE NEG (NEG); OPIATES NEG (NEG); PHENCYCLIDINE NEG (NEG)
[2021-02-08 22:23] LABS: BACTERIA,URINE 0 /HPF (0-FEW); WBC,URINE 0 /HPF (0-4)
[2021-02-08 22:24] LABS: GRANULAR CASTS,URINE FEW /HPF; HYALINE CASTS, URINE FEW /HPF; SPERM,URINE PRESENT /HPF
[2021-02-08 22:43] VITALS: BP 120/70
--- NOTE | 2021-02-08 23:19 | PHYS DOC ---
Past Medical History Past Medical History: Seizure (CHRISTINA AGUIAR Vinay [employer]OSPECTING) Past Surgical History: No Surgical History (CHRISTINA AGUIAR Vinay [employer]ING) Smoking Status: Former Smoker Alcohol Use: Heavy Drug Use: None (CHRISTINA AGUIAR [employer]) General Adult EDM: Chief Complaint: SEIZURE HPI: HPI: Patient is a 35 year old male with history of seizures presenting today reporting had a seizure prior to coming to the ED. Patient himself states he called the mother before the seizure and the mother was able to call 911. This was unwitnessed seizure. He states he is on Dilantin but does not know how many milligrams but states he took the last dose yesterday. He states he follows up with a neurologist (ALISTAIRCHRISTINA Jackson [employer]) Review of Systems: Review of Systems: Constitutional: Denies fever or chills. [] Eyes: Denies change in visual acuity. [] HENT: Denies nasal congestion or sore throat. [] Respiratory: Denies cough or shortness of breath. [] Cardiovascular: Denies chest pain or edema. [] GI: Denies abdominal pain, nausea, vomiting, bloody stools or diarrhea. [] : Denies dysuria. [] Musculoskeletal: Denies back pain or joint pain. [] Integument: Denies rash. [] Neurologic: Reports seizure. Denies headache, focal weakness or sensory changes. [] Psychiatric: Denies depression or anxiety. [] (CHRISTINA AGUIAR Vinay [employer]) Heart Score: C/O Chest Pain: N/A Risk Factors: Risk Factors: DM, Current or recent (<one month) smoker, HTN, HLP, family history of CAD, obesity. Risk Scores: Score 0 - 3: 2.5% MACE over next 6 weeks - Discharge Home Score 4 - 6: 20.3% MACE over next 6 weeks - Admit for Clinical Observation Score 7 - 10: 72.7% MACE over next 6 weeks - Early Invasive Strategies (ALISTAIRManuelCHRISTINA Vinay [employer]PECTING) Current Medications: Current Medications Medications (Trade) Dose Ordered Sig/Ursula Start Time Stop Time Status Last Admin Dose Admin Fosphenytoin Sodium 1000 mg/ Sodium Chloride 70 ml @ 280 mls/hr 1X ONCE 02/08/21 20:15 02/08/21 20:29 DC 02/08/21 20:41 280 MLS/HR (CHRISTINA AGUIAR [employer]) Allergies: Allergies: Allergies Coded Allergies Type Severity Reaction Last Updated Verified No Known Drug Allergies 11/28/18 No (CHRISTINA AGUIAR [employer]) Physical Exam: PE: Constitutional: Well developed, well nourished, no acute distress, non-toxic appearance. [] HENT: Normocephalic, atraumatic, bilateral external ears normal, oropharynx moist, no oral exudates, nose normal. [] Eyes: PERRLA, EOMI, conjunctiva normal, no discharge. [] Neck: Normal range of motion, no tenderness, supple, no stridor. [] Cardiovascular:Heart rate regular rhythm, no murmur [] Lungs & Thorax: Bilateral breath sounds clear to auscultation [] Abdomen: Bowel sounds normal, soft, no tenderness, no masses, no pulsatile masses. [] Skin: Warm, dry, no erythema, no rash. [] Back: No tenderness, no CVA tenderness. [] Extremities: No tenderness, no cyanosis, no clubbing, ROM intact, no edema. [] Neurologic: Alert and oriented X 3, normal motor function, normal sensory func tion, no focal deficits noted. Cranial nerves II through XII intact Psychologic: Affect normal, judgement normal, mood normal. [] (CHRISTINA AGUIAR [employer]) Current Patient Data: Labs: Laboratory Tests Test 02/08/21 20:05 02/08/21 22:00 White Blood Count 8.1 x10^3/uL (4.0-11.0) Red Blood Count 4.87 x10^6/uL (4.30-5.70) Hemoglobin 14.9 g/dL (13.0-17.5) Hematocrit 45.0 % (39.0-53.0) Mean Corpuscular Volume 93 fL (79-100) Mean Corpuscular Hemoglobin 31 pg (25-35) Mean Corpuscular Hemoglobin Concent 33 g/dL (31-37) Red Cell Distribution Width 13.6 % (11.5-14.5) Platelet Count 183 x10^3/uL (140-400) Neutrophils (%) (Auto) 51 % (31-73) Lymphocytes (%) (Auto) 40 % (24-48) Monocytes (%) (Auto) 8 % (0-9) Eosinophils (%) (Auto) 1 % (0-3) Basophils (%) (Auto) 0 % (0-3) Neutrophils # (Auto) 4.1 x10^3/uL (1.8-7.7) Lymphocytes # (Auto) 3.2 x10^3/uL (1.0-4.8) Monocytes # (Auto) 0.7 x10^3/uL (0.0-1.1) Eosinophils # (Auto) 0.1 x10^3/uL (0.0-0.7) Basophils # (Auto) 0.0 x10^3/uL (0.0-0.2) Sodium Level 137 mmol/L (136-145) Potassium Level 3.8 mmol/L (3.5-5.1) Chloride Level 97 mmol/L (98-107) L Carbon Dioxide Level 20 mmol/L (21-32) L Anion Gap 20 (6-14) H Blood Urea Nitrogen 16 mg/dL (8-26) Creatinine 1.8 mg/dL (0.7-1.3) H Estimated GFR (Cockcroft-Gault) 51.9 BUN/Creatinine Ratio 9 (6-20) Glucose Level 155 mg/dL (70-99) H Lactic Acid Level 11.5 mmol/L (0.4-2.0) *H Calcium Level 9.5 mg/dL (8.5-10.1) Magnesium Level 2.2 mg/dL (1.8-2.4) Total Bilirubin 0.3 mg/dL (0.2-1.0) Aspartate Amino Transferase (AST) 29 U/L (15-37) Alanine Aminotransferase (ALT) 56 U/L (16-63) Alkaline Phosphatase 92 U/L (46-116) Total Protein 8.5 g/dL (6.4-8.2) H Albumin 4.3 g/dL (3.4-5.0) Albumin/Globulin Ratio 1.0 (1.0-1.7) Lipase 216 U/L (73-393) Salicylates Level < 2.8 mg/dL (2.8-20.0) L Salicylate Last Dose Date Unk Salicylate Last Dose Time Unk Acetaminophen Level < 2.0 mcg/ml (10-30) L Acetaminophen Last Dose Date Unk Acetaminophen Last Dose Time Unk Phenytoin (Dilantin) Level 1.8 mcg/mL (10.0-20.0) L Phenytoin Last Dose Date 02/07/21 Phenytoin Last Dose Time 2100 Ethyl Alcohol Level < 10 mg/dL (0-10) Urine Collection Type Unknown Urine Color Yellow Urine Clarity Clear Urine pH 5.5 (<5.0-8.0) Urine Specific [place] 1.015 (1.000-1.030) Urine Protein 30 mg/dL (NEG-TRACE) Urine Glucose (UA) Negative mg/dL (NEG) Urine Ketones (Stick) Negative mg/dL (NEG) Urine Blood Small (NEG) Urine Nitrite Negative (NEG) Urine Bilirubin Negative (NEG) Urine Urobilinogen Dipstick 0.2 mg/dL (0.2 mg/dL) Urine Leukocyte Esterase Negative (NEG) Urine RBC 1-2 /HPF (0-2) Urine WBC 0 /HPF (0-4) Urine Squamous Epithelial Cells Few /LPF Urine Bacteria 0 /HPF (0-FEW) Urine Hyaline Casts Few /HPF Urine Granular Casts Few /HPF Urine Mucus Mod /LPF Urine Sperm Present /HPF Urine Opiates Screen Neg (NEG) Urine Methadone Screen Neg (NEG) Urine Barbiturates Neg (NEG) Urine Phencyclidine Screen Neg (NEG) Urine Amphetamine/Methamphetamine Neg (NEG) Urine Benzodiazepines Screen Neg (NEG) Urine Cocaine Screen Neg (NEG) Urine Cannabinoids Screen Neg (NEG) Urine Ethyl Alcohol Neg (NEG) Laboratory Tests 02/08/21 20:05 Laboratory Tests 02/08/21 20:05 Vital Signs: Vital Signs Date Time Temp Pulse Resp B/P (MAP) Pulse Ox O2 Delivery O2 Flow Rate FiO2 02/08/21 22:30 63 18 97 02/08/21 19:45 98.7 128/58 (81) Room Air 98.7 (CHRISTINA AGUIAR [employer]PECTING) EKG: EKG: [] (CHRISTINA AGUIAR ) Radiology/Procedures: Radiology/Procedures: [] (CHRISTINA AGUIAR [employer]PECTING) Course & Med Decision Making: Course & Med Decision Making Pertinent Labs and Imaging studies reviewed. (See chart for details) This is a 35-year-old male patient with history of seizures presenting today to be evaluated after having a seizure. He is on Dilantin. Last dose was yest erday. He does not know how many milligrams he takes. Dilantin 1.8 CBC with no acute findings, CMP with creatinine of 1.8, BUN is normal. Lactic 11.5 Patient was discharged to home after receiving Dilantin IV in the ED. Encourage him to contact his neurologist in follow-up in the course of this week. (CHRISTINA AGUIAR APRN) Dragon Disclaimer: Dragon Disclaimer: This electronic medical record was generated, in whole or in part, using a voice recognition dictation system. (CHRISTINA AGUIAR APRN) Departure Departure Impression: Primary Impression: Seizure Disposition: 01 DC HOME SELF CARE/HOMELESS Condition: STABLE Referrals: NO PCP (PCP) PAWEL ETIENNE MD Please follow-up with your neurologist in the course of this week Patient Instructions: Seizure, Adult Additional Instructions: You were evaluated in the emergency room for seizure. I highly encourage you to call your neurologist in follow-up in the course of this week. Ensure you are taking your seizure medicine your dilantin level was 1.8. Come back to the ED at any point symptoms worsen Attending Signature Attending Signature I have reviewed the PA/INFORMATION SERVICES ASSISTANT's note and plan of care. I was available for consultation as needed during the patient's visit in the emergency department. I agree with the clinical impression, plan, and disposition. (GAGE BATEMAN DO) CHRISTINA AGUIAR APRN Feb 08, 2021 23:19 GAGE BATEMAN DO Feb 09, 2021 00:51
== END 2021-02-09 00:20 | disposition home or self-care (01) ==
LOC: ER 19:44
DX: R56.9 Unspecified convulsions (principal); F10.10 Alcohol abuse, uncomplicated; Z87.891 Personal history of nicotine dependence
CPT/HCPCS: 36415; 80053; 80185; 80307; 80329; 81001; 83605; 83690; 83735; 85025; 93005; 96365; 99285; G0480; Q2009